=== PATIENT | male | born 1965 ===

== ENCOUNTER → 2019-06-21 14:31 | Outpatient (BNVA) | payer OTHER, SELFPAY | PROVIDERS: Family Provider Family Medicine; PCP Family Medicine; Referring Provider Internal Medicine Cardiovascular Disease; Visit Provider Podiatrist Foot & Ankle Surgery | DX: M79.672 Pain in left foot (principal); M77.32 Calcaneal spur, left foot | CPT/HCPCS: 73630 ==

== ENCOUNTER → 2020-02-16 16:34 | Outpatient (BNVA) | payer OTHER, SELFPAY | PROVIDERS: Family Provider Family Medicine; PCP Family Medicine; Visit Provider Internal Medicine Cardiovascular Disease | DX: I48.91 Unspecified atrial fibrillation (principal) | CPT/HCPCS: 80053; 83735; 84443; 85025 ==

== ENCOUNTER 2020-03-30 14:20 | Outpatient (CLI) | payer OTHER, SELFPAY ==
--- NOTE | 2020-03-30 14:15 | USCV_ITS ---
Trevor Betancourt Age: 54 Gender: M : 1965 Exam Date: 03/30/2020 14:36 Ordering Phys: Evelyn Shin MD ([email or web address]) Technologist: Freda Meraz Exam Location: [facility] [place] Indication: UNSPECIFIED AFIB BP: / HR: 61 Rhythm: Sinus Technical Quality: Good MEASUREMENTS (Male / Female) Normal Values 2D ECHO LV Diastolic Diameter PLAX 5.5 cm 4.2 - 5.9 / 3.9 - 5.3 cm LV Systolic Diameter PLAX 3.9 cm IVS Diastolic Thickness 1.5 cm 0.6 - 1.0 / 0.6 - 0.9 cm IVS Systolic Thickness 1.6 cm LVPW Diastolic Thickness 1.0 cm 0.6 - 1.0 / 0.6 - 0.9 cm LVPW Systolic Thickness 1.4 cm LVOT Diameter 2.2 cm LV Ejection Fraction 2D Teich 53.3 % LV Ejection Fraction MOD 2C 69.9 % LV Ejection Fraction 2C AL 69.4 % LA Diameter 3.6 cm LA Width 3.1 cm LA Height 5.8 cm RA Width 5.4 cm RA Height 5.9 cm Aorta at Sinotubular Diameter 3.0 cm M-MODE LV Diastolic Diameter MM 6.7 cm 4.2 - 5.9 / 3.9 - 5.3 cm LV Systolic Diameter MM 3.5 cm LV Ejection Fraction MM Teich 78.5 % IVS Diastolic Thickness MM 0.6 cm 0.6 - 1.0 / 0.6 - 0.9 cm IVS Systolic Thickness MM 1.9 cm LVPW Diastolic Thickness MM 0.7 cm 0.6 - 1.0 / 0.6 - 0.9 cm LVPW Systolic Thickness MM 2.0 cm Aortic Annulus Diameter 3.3 cm LA Ao Ratio MM 1.3 MV E Point Septal Separation 0.5 cm DOPPLER AV Peak Velocity 180.0 cm/s LVOT Peak Velocity 112.0 cm/s AV Area Cont Eq vti 2.2 cm squared AV Area Cont Eq pk 2.3 cm squared MV Peak Velocity 99.0 cm/s MV Area PHT 3.4 cm squared Mitral E to A Ratio 1.0 MV E' Velocity 42.5 cm/s Mitral E to MV E' Ratio 6.9 Mitral E to LV E' Lateral Ratio 6.3 Mitral E to LV E' Septal Ratio 7.8 TR Peak Velocity 196.3 cm/s TR Peak Gradient 15.4 mmHg Right Atrial Pressure 3.0 mmHg Pulmonary Artery Systolic Pressu 18.4 mmHg PV Peak Velocity 123.0 cm/s RV Acceleration Time 0.1 s RV Ejection Time 0.3 s RV AcT/ET 0.2 FINDINGS Left Ventricle Normal left ventricular size, systolic function and wall thickness, with no regional wall motion abnormalities. Left ventricular ejection fraction is estimated at 65 %. Normal diastolic function. Right Ventricle Normal right ventricular size and systolic function. Right ventricular systolic pressure 18.4 mmHg. Right Atrium Mildly increased right atrial size. Right atrial pressure estimated at 3 mm Hg. Left Atrium Normal left atrial size. Mitral Valve Structurally normal mitral valve. No mitral valve stenosis. Mild mitral valve regurgitation. Aortic Valve Structurally normal trileaflet aortic valve. No aortic valve stenosis. No aortic valve regurgitation. Tricuspid Valve Structurally normal tricuspid valve. No tricuspid valve stenosis. Mild tricuspid valve regurgitation. Pulmonic Valve Pulmonic valve not well visualized. Trace pulmonary valve regurgitation. Pericardium No pericardial effusion. Aorta Normal size aortic root and proximal ascending aorta. CONCLUSIONS 1. Normal left ventricular size, systolic function and wall thickness, with no regional wall motion abnormalities. Left ventricular ejection fraction is estimated at 65 %. Normal diastolic function. 2. Normal right ventricular size and systolic function. 3. Mild mitral and tricuspid valve regurgitation. 4. Normal pulmonary artery pressure. 5. No prior similar studies to compare. Evelyn Shin MD (Electronically Signed) Final Date: 04 April 2020 07:55 S
== END 2020-03-30 14:21 | disposition home or self-care (01) ==
LOC: US 14:22
PROVIDERS: PCP Family Medicine; Visit Provider Internal Medicine Cardiovascular Disease
DX: I48.91 Unspecified atrial fibrillation (principal); I08.1 Rheumatic disorders of both mitral and tricuspid valves
CPT/HCPCS: 93306

== ENCOUNTER 2020-10-09 16:09 | Inpatient (IN) | payer OTHER, SELFPAY ==
--- NOTE | 2020-10-09 16:30 | PC.NURSE ---
Patient arrived to the floor via wheelchair as a direct admit. Patient was provided with a gown, and socks. Patient oriented to room, telemetry machine and call cerda.
--- NOTE | 2020-10-09 16:41 | ECG_ITS ---
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 Measurements Intervals [place] Rate: 102 P: MT: QRS: -20 QRSD: 115 T: 136 QT: 358 QTc: 468 Interpretive Statements ATRIAL FLUTTER/TACHYCARDIA WITH RAPID VENTRICULAR RESPONSE POSSIBLE ANTERIOR MYOCARDIAL INFARCTION [30 ms Q WAVE IN V3/V4, OR R < 0.2 mV IN V4], OF INDETERMINATE AGE MODERATE T-WAVE ABNORMALITY, CONSIDER LATERAL ISCHEMIA [-0.1+ mV T WAVE IN I/aVL/V5/V6] Compared to ECG 04/13/2017 09:05:45 Myocardial infarct finding now present Possible ischemia now present Sinus rhythm no longer present T-wave abnormality still present Electronically Signed On 10-10-2020 17:47:46 CDT by Matilde Sutherland M.D. [id number]
--- NOTE | 2020-10-09 17:12 | PM.HP ---
Providers/Chief Complaint Admitting Physician: Evelyn Shin MD Primary Care Provider: Dave Wells MD Chief Complaint: chest pain History of Present Illness Trevor Betancourt is a 54 year old male with history of hypertension, dyslipidemia and previous history of paroxysmal A. fib x 26 years s/p a. fib ablation x 1 in Feb 2014. He also has sleep apnea and is complaint with CPAP. He went into A. fib few weeks back and continues to complains of fatigue, dizziness and SOB. He took flecainide and that has not helped He had a stress test as per patient several years back. None in our system. He has stayed in atrial flutter/fib for last several weeks. He is on propafenone 225 mg 3 times daily. He was admitted for BRENDON/CV for symptomatic atrial flutter/atrial fibrillation. He has been having dizziness and shortness of breath that has been progressively getting worse. No orthopnea, PND. No lower extremity swelling. at bedside at the time of examination. Review of Systems Const: Denies: fever(s), chills or body aches Eyes: Denies: change in vision or blurry vision ENMT: Denies: throat pain, odynophagia or hoarseness Card: Reports: chest pain (occasional with palpitations), palpitations and dyspnea on exertion; Denies: edema, swelling of feet/ankles, lightheadedness, syncope or pre-syncope Resp: Denies: dyspnea, productive cough, non-productive cough or wheezing GI: Denies: abdominal pain, nausea, vomiting, hematemesis, coffee ground emesis, dysphagia, heartburn, hematochezia or melena : Denies: flank pain, difficulty urinating or urinary urgency Musc: Reports: neck pain and back pain; Denies: muscle cramps Skin/Breast: Denies: rash, pruritus, erythema, photosensitivity or skin pain Neuro: Reports: dizziness (occasional); Denies: headache(s) Psych: Denies: anxiety, depression, mood swings, suicidal ideation or homicidal ideation Endo: Denies: polyuria, polydipsia or excessive sweating Donnie/Lymph: Denies: easy bruising or easy bleeding All/Imm: Denies: urticaria, throat swelling, tongue swelling, facial swelling, acute wheezing, itchy eyes, seasonal rhinorrhea or food intolerance Medications/Allergies Home Medications Medication Instructions Recorded Confirmed Last Taken Type ascorbate calcium (vitamin C) 500 500 mg PO QDAY 05/26/19 10/01/20 Unknown History mg tablet levothyroxine 75 mcg capsule 75 mcg PO QDAY 05/26/19 10/01/20 Unknown History testosterone cypionate 100 mg/mL 100 mg IM .COMPLEX 05/26/19 10/01/20 Unknown History intramuscular oil tramadol 50 mg tablet 25 mg PO Q6H PRN tab 05/26/19 10/01/20 Unknown History metoprolol tartrate 25 mg tablet 25 mg PO BID tab 10/01/20 10/01/20 Unknown History dabigatran etexilate 150 mg capsule 150 mg PO BID #60 cap 10/02/20 10/02/20 Unknown Rx rivaroxaban 20 mg tablet 20 mg PO DAILY #30 tab 10/02/20 Unknown Rx propafenone 225 mg tablet 225 mg PO TID #90 tab 10/03/20 Unknown Rx Allergies Allergy/AdvReac Type Severity Reaction Status Date / Time ibuprofen Allergy Severe Unknown Verified 10/01/20 09:05 PFSH Acute PFSH: Medical History (Updated 10/09/20 @ 18:21 by Evelyn Shin MD) Atrial fibrillation Dyslipidemia History of coronary angiogram HTN (hypertension) TRACY (obstructive sleep apnea) Surgical History H/O cardiac radiofrequency ablation S/P hernia repair Family History Grandmother CAD (coronary artery disease) MATERNAL Diabetes Mother Parkinson disease Grandfather CAD (coronary artery disease) MATERNAL S/P CABG (coronary artery bypass graft) Social History Smoking and tobacco status: never smoked Alcohol intake: current Alcohol intake frequency: few times a month Household members: spouse Marital status: service: No Current occupational status: employed Current gender identity: Male Jacki/Yarsanism: Sabianism Physical Exam Narrative: EXAM NARRATIVE: GEN: sitting in bed, NAD HEENT/Neck: NO JVD, PEERL, No pallor or icterur RS: CTAB/L, No wheezes or rales CVS: S1, S2 regular tachycardia+ PA: soft, NT, ND, BS+ normoactive COLOR MAKER: AAOx 3, No FND Ext: No edema, cyanosis or clubbing Data : 10/09/20 17:22 10/09/20 17:22 A&P Assessment and plan (1) Dyspnea on exertion: Likely in setting of symptomatic A. fib/flutter -However, would benefit from risk startification. -Plan for stress test in morning. Status: Acute (2) Atrial flutter, paroxysmal: A. fib/A. flutter -On propafenone to 225 mg 3 times daily and Continue metoprolol tartrate 25 mg twice a day. -continue xarelto. -May have to try sotalol/Tikosyn if fails cardioversion. -He would like to be referred to [place] for another ablation procedure. Status: Acute (3) Atrial fibrillation: Status: Acute Qualifiers: Atrial fibrillation type: unspecified chronic Qualified Code(s): I48.20 - Chronic atrial fibrillation, unspecified (4) HTN (hypertension): Status: Acute Qualifiers: Hypertension type: essential hypertension Qualified Code(s): I10 - Essential (primary) hypertension (5) TRACY (obstructive sleep apnea): Status: Acute (6) Dyslipidemia: Status: Acute Additional A&P Information DVT prophylaxis: On full dose anticoagulation Attestations Medical Necessity Statement*: He would likely need more than 2 midnight stay for management of symptomatic atrial flutter/fib Time Spent in Patient Care: Greater than 35 minutes (>than 50% of time spent in counselling and/or direct pt care on unit). 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
[2020-10-09 17:28] VITALS: BMI 32.5
[2020-10-09 17:39] LABS: Basophils # 0.1 10^3/uL (0.0-0.1); Basophils % 0.9 %; Eosinophils # 0.4 10^3/uL (0.0-0.8); Eosinophils % 5.8 %; Hematocrit 42.9 % (42.0-52.0); Hemoglobin 14.2 g/dL (11.7-16.6); Lymphocytes # 1.7 10^3/uL (0.8-4.8); Mean Corpuscular HGB Conc 33.1 g/dL (30.0-36.0); Mean Corpuscular Hemoglobin 29.8 pg (28.0-34.0); Mean Corpuscular Volume 90.1 fL (80-94); Mean Platelet Volume 9.2 fL (7.4-10.4); Monocytes # 0.6 10^3/uL (0.2-0.9); Monocytes % 8.1 %; Neutrophils # 4.75 10^3/uL (1.8-7.7); Neutrophils % 62.8 %; Nucleated Red Blood Cells % 0 %; Platelet Count 199 10^3/cmm (130-400); Red Blood Count 4.76 10^6/uL (4.1-5.3); Red Cell Distribution Width 12.2 % (12.1-15.1); White Blood Count 7.6 10^3/uL (4.0-10.0)
--- NOTE | 2020-10-09 18:11 | ECG_ITS ---
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 Interpretive Statements NAME OF STUDY: LEXISCAN SESTAMIBI STRESS TEST INDICATION: Atrial fibrillation, propafenone therapy PROCEDURE: At the baseline, the blood pressure was 121/100 mmHg with a heart rate of 106 bpm. The electrocardiogram showed atrial flutter with rapid ventricle response. Normal axis. Possible old anteroseptal infarct. Nonspecific ST-T wave changes. The Lexiscan was infused over a period of 20 seconds. A total of 0.4 milligrams of Lexiscan was infused. The stress phase was continued for a total of 5 minutes. Heart rate at the end of the stress phase was 109 bpm with a blood pressure of 106/84 mmHg. The EKG at the peak infusion revealed no significant ST-T wave changes. Sestamibi was injected 20 seconds after the Lexiscan infusion. Blood pressure at the end of the recovery phase was 106/81 mmHg with a heart rate of 109 beats per minute. CONCLUSION: 1. No significant EKG changes with the LexiScan infusion 2. No LexiScan induced chest pain or cardiac arrhythmia. 3. Normal blood pressure and heart rate response. 4. Sestamibi/sestamibi perfusion scan pending; see separate report. Electronically Signed On 10-10-2020 17:27:46 CDT by Evelyn Shin M.D. [id number]
[2020-10-09 18:18] LABS: Alanine Aminotransferase 34 U/L (0-41); Albumin Level 4.4 g/dL (3.5-5.2); Alkaline Phosphatase 77 IU/L (40-130); Anion Gap 16.1 (5-19); Aspartate Amino Transferase 16 U/L (0-40); Blood Urea Nitrogen 23 mg/dL (6-20); Calcium 8.7 mg/dL (8.5-10.5); Carbon Dioxide 22 mmol/L (22-29); Chloride 105 mmol/L (98-107); Globulin 2.2 g/dL (1.3-4.6); Glomerular Filtration Rate 77.3 mL/min (90-130); Glucose 84 mg/dL (65-115); NT Pro B Type Natriuretic Pept 345 pg/mL (0-125); Osmolality Calculated 291 mOsm/kg (285-295); Potassium 4.1 mmol/L (3.5-5.1); Sodium 139 mmol/L (136-145); Thyroid Stimulating Hormone 4.66 uIU/mL (0.27-4.20); Total Bilirubin 0.2 mg/dL (0.15-1.2); Total Protein 6.6 g/dL (6.6-8.7)
[2020-10-09 20:00] VITALS: BP 113/81; PULSE 111; RESP 20; TEMP 36.7; O2SAT 96
[2020-10-09 20:43] LABS: SARS Covid-2 Antigen Negative (Negative)
[2020-10-09] MEDS: propafenone 150 mg Tablet 225 MG PO (21:18)
[2020-10-09] MEDS: metoprolol tartrate 25 mg Tablet PO (21:18)
[2020-10-09 21:22] VITALS: PULSE 76; RESP 18; O2SAT 97
[2020-10-09 22:00] VITALS: PULSE 99
[2020-10-09 23:53] VITALS: BP 111/85; PULSE 94; RESP 20; TEMP 36.6; O2SAT 97
[2020-10-10] VITALS (13 sets, daily range): BP systolic 101–126; BP diastolic 70–97; PULSE 76–108; RESP 10–26; TEMP 36.6–37.2; O2SAT 95–99
[2020-10-10] MEDS: levothyroxine 150 mcg Tablet 75 MCG PO (05:24)
[2020-10-10 05:25] LABS: Basophils # 0.1 10^3/uL (0.0-0.1); Basophils % 0.9 %; Eosinophils # 0.5 10^3/uL (0.0-0.8); Eosinophils % 6.6 %; Hematocrit 43.4 % (42.0-52.0); Hemoglobin 14.2 g/dL (11.7-16.6); Lymphocytes # 1.9 10^3/uL (0.8-4.8); Lymphocytes % 25.4 %; Mean Corpuscular HGB Conc 32.7 g/dL (30.0-36.0); Mean Corpuscular Hemoglobin 29.6 pg (28.0-34.0); Mean Corpuscular Volume 90.4 fL (80-94); Mean Platelet Volume 9.5 fL (7.4-10.4); Monocytes # 0.6 10^3/uL (0.2-0.9); Monocytes % 7.8 %; Neutrophils # 4.44 10^3/uL (1.8-7.7); Neutrophils % 58.9 %; Nucleated Red Blood Cells % 0 %; Platelet Count 191 10^3/cmm (130-400); Red Cell Distribution Width 12.2 % (12.1-15.1); White Blood Count 7.6 10^3/uL (4.0-10.0)
[2020-10-10 05:46] LABS: Alanine Aminotransferase 37 U/L (0-41); Albumin Level 3.8 g/dL (3.5-5.2); Alkaline Phosphatase 67 IU/L (40-130); Anion Gap 12.9 (5-19); Aspartate Amino Transferase 20 U/L (0-40); Blood Urea Nitrogen 18 mg/dL (6-20); Calcium 8.9 mg/dL (8.5-10.5); Carbon Dioxide 24 mmol/L (22-29); Chloride 104 mmol/L (98-107); Chol HDL Ratio 4.65 mg/dL (1.0-5.00); Cholesterol 172 mg/dL (0-200); Globulin 2.3 g/dL (1.3-4.6); Glomerular Filtration Rate 87.3 mL/min (90-130); Glucose 103 mg/dL (65-115); HDL Cholesterol 37 mg/dL (60-100); LDL Cholesterol Calculated 120 mg/dL (50-129); LDL HDL Ratio 3.24 RATIO (0.00-3.22); Osmolality Calculated 286 mOsm/kg (285-295); Potassium 3.9 mmol/L (3.5-5.1); Sodium 137 mmol/L (136-145); Total Bilirubin 0.4 mg/dL (0.15-1.2); Total Protein 6.1 g/dL (6.6-8.7); Triglycerides 74 mg/dL (0-150)
--- NOTE | 2020-10-10 07:00 | ECG_ITS ---
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 Measurements Intervals [place] Rate: 88 P: FL: QRS: -23 QRSD: 115 T: 128 QT: 397 QTc: 483 Interpretive Statements ATRIAL FLUTTER/TACHYCARDIA BORDERLINE LEFT AXIS DEVIATION [QRS AXIS < -20] MODERATE INTRAVENTRICULAR CONDUCTION DELAY [110+ ms QRS DURATION] MODERATE T-WAVE ABNORMALITY, CONSIDER LATERAL ISCHEMIA [-0.1+ mV T WAVE IN I/aVL/V5/V6] Compared to ECG 10/09/2020 17:31:14 Intraventricular conduction delay now present Myocardial infarct finding no longer present T-wave abnormality still present Possible ischemia still present Electronically Signed On 10-10-2020 17:50:25 CDT by Matilde Sutherland M.D. [id number]
[2020-10-10] MEDS: regadenoson 0.4 Mg/5 ml Syringe IVP (07:43)
--- NOTE | 2020-10-10 07:43 | PC.NURSE ---
Patient voiding in toilet, not saving urine, per patient. Patient stated he voided 3 times throughout the night.
[2020-10-10 08:31] LABS: Free T4 Free Thyroxine 1.13 ng/dL (0.82-1.77); T3 Free 2.3 PG/ML (2.0-4.4)
[2020-10-10] MEDS: metoprolol tartrate 25 mg Tablet PO ×2 (09:29→20:50)
[2020-10-10] MEDS: propafenone 150 mg Tablet 225 MG PO ×3 (09:29→20:50)
[2020-10-10] MEDS: rivaroxaban 10 mg Tablet 20 MG PO (09:30)
--- NOTE | 2020-10-10 09:57 | PC.CHAP ---
Pastoral Care Encounter/Spiritual Assessment Type of Contact [] Declined supportability engineer visit [] Patient/Family/Request visit [] Outpatient visit [] Follow-up visit [] Physician referral [] Code/Alert [x] Routine visit [] Staff referral [] Actively dying [] Patient sleeping [] Family support [] [] Out of room [] Palliative care [] [] Receiving care in room [] Pre-surgical visit [] Trauma [] Long length of stay [] ICU visit [x] Other: quarantine Relational/Emotional Strength [] Patient feels connected with others/family/visitors/staff [] Distress [] Loneliness/isolation [] Abandonment Spirituality of Patient [] Person of Jacki [] Attends Cheondoism of their Jacki [] Believes in Prayer [] Reads Bible or Baptism materials [] There are Spiritual issues to be addressed Interpreter Deaf Interventions [x] Prayer [] Active listening [] Non-anxious presence [] Spiritual/emotional support [] Crisis/trauma care [] Spiritual counseling [] Bereavement support [] Provided bereavement packet [] Provided Bible/devotional materials [] Provided toy/stuffed animal, coloring book to patient or family member [] Provided Communion [] Anointing/[place] [] Salvation [x] Completed spiritual assessment [] Other: Impact on Illness or Injury [] Angry [] Fearful [] Anxious [] Often cries [] Exhaustion [] Unable to work [] Unable to attend mandaeism [] Unable to walk/stand [] Unable to read [] Unable to drive [] Unable to eat/drink [] Unable to sleep [] Unable to be with family [] Patient intubated [] Other: Summary Time spent with patient
--- NOTE | 2020-10-10 10:17 | PC.NURSE ---
spoke with Dr welch about patients NPO status for stress test and plans to do cardio version at some point this stay telephone instructions received to continue history diet order
--- NOTE | 2020-10-10 12:35 | PC.PHAR ---
pt states he takes care of his own medications-pt states he never got the symbicort inhaler filled on 10/03/20 pt states the copay was to expensive-pt states he is taking xarelto 20mg daily-ext med history shows pradaxa 150mg bid filled on 10/02/20 30d/s pt states he is not taking that-pt states he hasnt taken his testost cyp 200mg/ml injection for 3-4 weeks
[2020-10-10 15:13] LABS: Coronavirus Test Green County Not Detected
--- NOTE | 2020-10-10 18:11 | NMCV_ITS ---
NM barbara perf SPECT r/s* [id number] Trevor Betancourt Age: 54 Gender: M : 1965 Exam Date: 10/10/2020 07:00 Ordering Phys: Evelyn Shin MD ([email or web address]) Technologist: CHINYERE Godfrey Exam Location: [facility] Indications: CHEST PAIN STRESS TEST Please see separate stress test report in [facility] for full findings IMAGE PROTOCOL Rest/Stress 1 Lexiscan Day Radiopharmaceutical Dose (mCi) Administration Site Administered by Rest: Tc-99m 10.9 IV CHINYERE Veras Sestamibi Stress:Tc-99m 32.3 IV CHINYERE Veras Sestamibi Rest: 10-Oct-2020 60 Discovery 630 Stress: 10-Oct-2020 30 Discovery 630 0.4mg Lexiscan. Images obtained in supine and prone position. SPECT RESULTS Technical Quality: Excellent Raw Data Analysis: Normal Image Corrections: No attenuation or motion correction applied Summed Stress Score: 0 Summed Rest Score: 2 Summed Difference Score: 0 PERFUSION FINDINGS Small size perfusion abnormality of mild severity of apical lateral wall and resting supine stress images with improved tracer uptake on prone stress images. This is suggestive of attenuation artifact. FUNCTIONAL RESULTS (calculated via Gated SPECT) Stress Image LV EF (%): 39 Stress EDV (mL):141 TID: 0.99 Stress ESV (mL):86 FUNCTIONAL FINDINGS: The left ventricle is normal in size. Transient Ischemia Dilatation of 0.99. There is moderately reduced left ventricular global systolic function. The left ventricular ejection fraction is reduced with a value of 39%. There is global hypokinesis. Increased end-diastolic and end-systolic volumes. IMPRESSIONS 1. Myocardial perfusion imaging is normal. Attenuation artifact and apical lateral wall. 2. The left ventricular ejection fraction is reduced with a value of 39%. 3. There is global hypokinesis. 4. No coronary ischemia based on the study. 5. No prior similar studies to compare. Evelyn Shin MD (Electronically Signed) Final Date: 10 October 2020 15:04 S
--- NOTE | 2020-10-10 19:56 | P.PN_ITS ---
Subjective Subjective: Interval history: He underwent stress test this morning. Medications: Reviewed: Yes Vitals/I&O/Wt Last Vital Signs Temp 97.9 F 10/10/20 15:00 Pulse 100 10/10/20 19:06 Resp 13 10/10/20 19:06 BP 108/83 10/10/20 19:06 Pulse Ox 95 10/10/20 15:00 10/10/20 10/10/20 10/10/20 06:59 14:59 22:59 Intake Total 120 / 120 360 / 480 Output Total 350 / 350 Balance -230 / -230 360 / 130 Weight last 48 hrs Weight 226 lb Weight 226 lb 8 oz Physical Exam Narrative: EXAM NARRATIVE: GEN: sitting in bed, NAD HEENT/Neck: NO JVD, PEERL, No pallor or icterur RS: CTAB/L, No wheezes or rales CVS: S1, S2 regular tachycardia+ PA: soft, NT, ND, BS+ normoactive CORN PICKER: AAOx 3, No FND Ext: No edema, cyanosis or clubbing Data : 10/10/20 04:20 10/10/20 04:20 A&P Assessment and plan (1) Dyspnea on exertion: Likely in setting of symptomatic A. fib/flutter -No ischemia on stress test this morning. Status: Acute (2) Atrial flutter, paroxysmal: A. fib/A. flutter -On propafenone to 225 mg 3 times daily and Continue metoprolol tartrate 25 mg twice a day. -continue xarelto. -May have to try sotalol/Tikosyn if fails cardioversion/ LVEF decreased on BRENDON. -Plan for BRENDON and CV tomorrow morning. -He would like to be referred to [place] for another ablation procedure. Status: Acute (3) Atrial fibrillation: h/o A. fib Status: Acute Qualifiers: Atrial fibrillation type: unspecified chronic Qualified Code(s): I48.20 - Chronic atrial fibrillation, unspecified (4) HTN (hypertension): Status: Acute Qualifiers: Hypertension type: essential hypertension Qualified Code(s): I10 - Esse ntial (primary) hypertension (5) TRACY (obstructive sleep apnea): Status: Acute (6) Dyslipidemia: Status: Acute Additional A&P Information DVT prophylaxis: On full dose anticoagulation Attestations Medical Necessity Statement*: Requires hospital stay for management of symptomatic atrial flutter/fib Time Spent in Patient Care: 16 - 35 minutes (>than 50% of time spent in counselling and/or direct pt care on unit) . Coding Level of Care Code Acute Size Mixer for [facility] Fwd Diagnoses Dyspnea on exertion R06.00 Atrial flutter, paroxysmal I48.92 Atrial fibrillation I48.20 Atrial fibrillation type: unspecified chronic HTN (hypertension) I10 Hypertension type: essential hypertension TRACY (obstructive sleep apnea) G47.33 Dyslipidemia E78.5
[2020-10-11] VITALS (31 sets, daily range): BP systolic 61–135; BP diastolic 46–99; PULSE 56–104; RESP 15–24; TEMP 36.6–36.8; O2SAT 94–100
[2020-10-11 05:22] LABS: Basophils # 0.1 10^3/uL (0.0-0.1); Basophils % 0.8 %; Eosinophils # 0.5 10^3/uL (0.0-0.8); Eosinophils % 6.4 %; Hematocrit 45.3 % (42.0-52.0); Hemoglobin 15.2 g/dL (11.7-16.6); Lymphocytes # 1.9 10^3/uL (0.8-4.8); Lymphocytes % 24.2 %; Mean Corpuscular HGB Conc 33.6 g/dL (30.0-36.0); Mean Corpuscular Hemoglobin 29.8 pg (28.0-34.0); Mean Corpuscular Volume 88.8 fL (80-94); Mean Platelet Volume 9.5 fL (7.4-10.4); Monocytes # 0.7 10^3/uL (0.2-0.9); Monocytes % 9.5 %; Neutrophils % 58.8 %; Nucleated Red Blood Cells % 0 %; Platelet Count 197 10^3/cmm (130-400); Red Cell Distribution Width 11.9 % (12.1-15.1); White Blood Count 7.8 10^3/uL (4.0-10.0)
[2020-10-11] MEDS: levothyroxine 150 mcg Tablet 75 MCG PO (05:33)
[2020-10-11 05:39] LABS: Alanine Aminotransferase 45 U/L (0-41); Albumin Level 4.1 g/dL (3.5-5.2); Alkaline Phosphatase 77 IU/L (40-130); Aspartate Amino Transferase 21 U/L (0-40); Blood Urea Nitrogen 16 mg/dL (6-20); Calcium 9.3 mg/dL (8.5-10.5); Carbon Dioxide 26 mmol/L (22-29); Chloride 100 mmol/L (98-107); Globulin 2.6 g/dL (1.3-4.6); Glomerular Filtration Rate 69.2 mL/min (90-130); Glucose 87 mg/dL (65-115); Osmolality Calculated 281 mOsm/kg (285-295); Sodium 135 mmol/L (136-145); Total Bilirubin 0.3 mg/dL (0.15-1.2); Total Protein 6.7 g/dL (6.6-8.7)
--- NOTE | 2020-10-11 07:04 | PC.NURSE ---
Patient voiding in toilet, not saving urine, per patient. Patient stated he voided 3 times throughout the night.
--- NOTE | 2020-10-11 07:31 | XR_ITS ---
WS: [id number] Exam: XR chest 1V portable [id number] Date/Time of Exam: 10/11/2020 7:42 AM Reason For Exam: SOB No priors. The lungs are fully inflated and clear. Normal cardiomediastinal structures for technique. No pleural effusions. Monitoring leads superimpose the chest. Regional bony elements are unremarkable. XR/XR chest 1V portable [id number] IMPRESSION: 1. No acute cardiopulmonary finding.
[2020-10-11] MEDS: propafenone 150 mg Tablet 225 MG PO (08:32)
[2020-10-11] MEDS: FUROsemide 20 mg Tablet PO (08:32)
[2020-10-11] MEDS: rivaroxaban 10 mg Tablet 20 MG PO (08:33)
[2020-10-11] MEDS: metoprolol tartrate 25 mg Tablet PO (08:33)
--- NOTE | 2020-10-11 08:53 | ANES.PREANE2 ---
Pre-Anesthetic Assessment Pre-Anesthetic Assessment: Height/Weight: Height 1.78 m Weight 101.151 kg Temp Pulse Resp BP Pulse Ox 98.3 F 75 17 135/78 98 10/11/20 07:16 10/11/20 07:16 10/11/20 07:16 10/11/20 07:16 10/11/20 07:16 Preop Diagnosis: syncope related to atrial fibrillation Proposed Procedure: Operation Date: 10/11/20 09:00 Proposed Procedures p BRENDON(Not Applicable) - Evelyn Shin MD Was Beta Butch taken within 24 hours: Yes Was Clonidine taken within 24 hours: N/A Last intake: 10/10/202229 Social: Social History: Alcohol and No tobacco Exam: Pre-Anes Outpt Exam: alert, oriented x 3 and clear to auscultation bilaterally Airway: Submandibular: WNL Cervical ROM: WNL MP: 1 Dentition: Caps History/ROS: No significant history except as noted Pulmonary: Pulmonary: Sleep apnea CV/HEM: CV/HEM: Afib, Arrythmia and HTN Comments: recent stress test - see results echo 1 year prior- see results : : None reported Hepatic: Hepatic: None reported GI: GI: None reported Metabolic: Metabolic: Thyroid and None reported Musc/skel: Musc/skel: None reported Neuropsych: Neuropsych: Seizure ( childhood epilepsy patient states no issues since childhood no current medications for seizure prophylaxis) Anesthetic Plan: ASA status: 3 Anesthesia: Anesthesia Evaluation and MAC Risk of > 500 ml blood loss (7ml/kg in children): No Meds/Allergies Current Medications: Current Medications Generic Name Dose Route Start Last Admin Trade Name Teena PRN Reason Stop Dose Admin Levothyroxine Sodi um 75 mcg 10/10/20 06:00 10/11/20 05:33 Levothyroxine 15 0 Mcg Tablet PO 75 mcg QAM GENOVEVA Administration Metoprolol Tartrat e 25 mg 10/09/20 21:00 10/11/20 08:33 Metoprolol Tartr ate 25 Mg Tablet PO 25 mg BID@0900,2100 GENOVEVA Administration Propafenone HCl 225 mg 10/09/20 21:00 10/11/20 08:32 Propafenone 150 Mg Tablet PO 225 mg TID GENOVEVA Administration Rivaroxaban 20 mg 10/10/20 09:00 10/11/20 08:33 Rivaroxaban 10 M g Tablet PO 20 mg DAILY GENOVEVA Administration PFSH Anesthesia PFSH: Medical History (Updated 10/09/20 @ 18:21 by Evelyn Shin MD) Atrial fibrillation Dyslipidemia History of coronary angiogram HTN (hypertension) TRACY (obstructive sleep apnea) Surgical History H/O cardiac radiofrequency ablation S/P hernia repair Family History Grandmother CAD (coronary artery disease) MATERNAL Diabetes Mother Parkinson disease Grandfather CAD (coronary artery disease) MATERNAL S/P CABG (coronary artery bypass graft) Social History Smoking and tobacco status: never smoked Alcohol intake: current Alcohol intake frequency: few times a month Household members: spouse Marital status: service: No Current occupational status: employed Current gender identity: Male Jacki/Protestant: Taoist Data Anesthesia CBC & Chem 7: 10/11/20 04:15 10/11/20 04:15 Other Labs: Laboratory Results - last 48 hr 10/09/20 10/09/20 10/09/20 17:22 17:22 18:34 WBC 7.6 RBC 4.76 Hgb 14.2 Hct 42.9 MCV 90.1 MCH 29.8 MCHC 33.1 RDW 12.2 Plt Count 199 MPV 9.2 Neut % (Auto) 62.8 Lymph % (Auto) 22.0 [place] % (Auto) 8.1 Eos % (Auto) 5.8 Baso % (Auto) 0.9 Neut # (Auto) 4.75 Lymph # (Auto) 1.7 [place] # (Auto) 0.6 Eos # (Auto) 0.4 Baso # (Auto) 0.1 Nucleated RBC % (auto) 0 Nucleated RBCs # 0.0 Sodium 139 Potassium 4.1 Chloride 105 Carbon Dioxide 22 Anion Gap 16.1 BUN 23 H Creatinine 1.0 GFR Calculation 77.3 L Glucose 84 Calculated Osmolality 291 Calcium 8.7 Magnesium 2.0 Total Bilirubin 0.2 AST 16 ALT 34 Alkaline Phosphatase 77 NT-Pro-B Natriuret Pep 345 H Total Protein 6.6 Albumin 4.4 Globulin 2.2 Triglycerides Cholesterol LDL Cholesterol, Calc HDL Cholesterol LDL/HDL Ratio Cholesterol/HDL Ratio TSH 4.66 H Free T4 Free T3 Nasal/Oral COVID-19 PCR Not detected SARS-CoV-2 Ag (Rapid) 10/09/20 10/10/20 10/10/20 18:57 04:20 04:20 WBC 7.6 RBC 4.80 Hgb 14.2 Hct 43.4 MCV 90.4 MCH 29.6 MCHC 32.7 RDW 12.2 Plt Count 191 MPV 9.5 Neut % (Auto) 58.9 Lymph % (Auto) 25.4 [place] % (Auto) 7.8 Eos % (Auto) 6.6 Baso % (Auto) 0.9 Neut # (Auto) 4.44 Lymph # (Auto) 1.9 [place] # (Auto) 0.6 Eos # (Auto) 0.5 Baso # (Auto) 0.1 Nucleated RBC % (auto) 0 Nucleated RBCs # 0.0 Sodium 137 Potassium 3.9 Chloride 104 Carbon Dioxide 24 Anion Gap 12.9 BUN 18 Creatinine 0.9 GFR Calculation 87.3 L Glucose 103 Calculated Osmolality 286 Calcium 8.9 Magnesium 2.0 Total Bilirubin 0.4 AST 20 ALT 37 Alkaline Phosphatase 67 NT-Pro-B Natriuret Pep Total Protein 6.1 L Albumin 3.8 Globulin 2.3 Triglycerides 74 Cholesterol 172 LDL Cholesterol, Calc 120 HDL Cholesterol 37 L LDL/HDL Ratio 3.24 H Cholesterol/HDL Ratio 4.65 TSH Free T4 Free T3 Nasal/Oral COVID-19 PCR SARS-CoV-2 Ag (Rapid) Negative 10/10/20 10/11/20 10/11/20 04:20 04:15 04:15 WBC 7.8 RBC 5.10 Hgb 15.2 Hct 45.3 MCV 88.8 MCH 29.8 MCHC 33.6 RDW 11.9 L Plt Count 197 MPV 9.5 Neut % (Auto) 58.8 Lymph % (Auto) 24.2 [place] % (Auto) 9.5 Eos % (Auto) 6.4 Baso % (Auto) 0.8 Neut # (Auto) 4.60 Lymph # (Auto) 1.9 [place] # (Auto) 0.7 Eos # (Auto) 0.5 Baso # (Auto) 0.1 Nucleated RBC % (auto) 0 Nucleated RBCs # 0.0 Sodium 135 L Potassium 4.0 Chloride 100 Carbon Dioxide 26 Anion Gap 13.0 BUN 16 Creatinine 1.1 GFR Calculation 69.2 L Glucose 87 Calculated Osmolality 281 L Calcium 9.3 Magnesium 2.0 Total Bilirubin 0.3 AST 21 ALT 45 H Alkaline Phosphatase 77 NT-Pro-B Natriuret Pep Total Protein 6.7 Albumin 4.1 Globulin 2.6 Triglycerides Cholesterol LDL Cholesterol, Calc HDL Cholesterol LDL/HDL Ratio Cholesterol/HDL Ratio TSH Free T4 1.13 Free T3 2.3 Nasal/Oral COVID-19 PCR SARS-CoV-2 Ag (Rapid) Cardiac Studies: No Data to Display
--- NOTE | 2020-10-11 09:00 | USCV_ITS ---
Trevor Betancourt Age: 54 Gender: M : 1965 Exam Date: 10/11/2020 09:04 Ordering Phys: Evelyn Shin MD ([email or web address]) Technologist: Vicky Dodge Exam Location[place] [facility] [place]ication: A FIB BP: 105 / 81 HR: 99 Rhythm: Atrial fibrillation Technical Quality: Adequate MEASUREMENTS (Male / Female) Normal Values Medications Patient given IV sedation by anesthesia service, for details please refer to the anesthesia report. Complications Intubation easy. Attempts x 1. No blood on probe post procedure. Patient tolerated procedure well. Proc. Components The patient was brought to the BRENDON examination room in a fasting state after obtaining an informed consent. The BRENDON probe was passed into the posterior pharynx , mid-esophagus, distal esophagus, and gastric fundus. The patient tolerated the procedure well and there were no complications. FINDINGS Left Ventricle Normal left ventricular cavity size. Moderately decreased left ventricular systolic function. Left ventricular ejection fraction is estimated at 35%. Moderate global hypokinesis. Right Ventricle Normal right ventricular size and systolic function. Normal right ventricular systolic pressure. Right Atrium Normal right atrial size. Left Atrium Normal left atrial size. LA Appendage Normal left atrial appendage. No thrombus visualized in the left atrial appendage. IA Septum Normal interatrial septum. Tiny patent foramen ovale by agitated saline (bubble study). 5-10 bubbles noted in left atrium. Mitral Valve Structurally normal mitral valve. No mitral valve stenosis. Trace mitral valve regurgitation. Aortic Valve Structurally normal trileaflet aortic valve. No aortic valve stenosis. Trace aortic valve regurgitation. Tricuspid Valve Structurally normal tricuspid valve. No tricuspid valve stenosis. Mild tricuspid valve regurgitation. Pulmonic Valve Structurally normal pulmonic valve. No significant pulmonary valve regurgitation. Pericardium No pericardial effusion. Normal-sized inferior vena cava. Aorta Normal size aortic root and proximal ascending aorta. No aortic dilation aneurysm or dissection. CONCLUSIONS 1. Normal left ventricular cavity size. Moderately decreased left ventricular systolic function. Left ventricular ejection fraction is estimated at 35%. Moderate global hypokinesis. 2. Normal right ventricular size and systolic function. 3. Normal pulmonary artery pressure. 4. No left atrial or left atrial appendage thrombus. 5. Mild tricuspid valve regurgitation. Evelyn Shin MD (Electronically Signed) Final Date: 12 October 2020 14:05 S
[2020-10-11] MEDS: sodium chloride 0.9% 1,000 ML 30 ML IV (09:10)
--- NOTE | 2020-10-11 09:53 | ECG_ITS ---
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 Measurements Intervals [place] Rate: 65 P: 66 SD: 223 QRS: -9 QRSD: 113 T: 27 QT: 425 QTc: 443 Interpretive Statements SINUS RHYTHM WITH FIRST DEGREE AV BLOCK MODERATE INTRAVENTRICULAR CONDUCTION DELAY [110+ ms QRS DURATION] NONSPECIFIC T-WAVE ABNORMALITY Compared to ECG 10/10/2020 09:29:36 First degree AV block now present Atrial flutter no longer present Possible ischemia no longer present T-wave abnormality still present Electronically Signed On 10-11-2020 18:30:15 CDT by Leonardo Montanez M.D. [id number]
--- NOTE | 2020-10-11 10:40 | PC.NURSE ---
BRENDON Dr Shin at bedside for BRENDON and cardio version TIME out performed 927 all members agree procedure start time 930 shock time 150j 46 procedure end 946 Fluids titrated per anesthesia 500 ml given during procedure verbal orders given by Dr Shin to obtain EKG for rhythm verification
--- NOTE | 2020-10-11 12:00 | P.PN_ITS ---
Subjective Subjective: Interval history: Patient was seen both before and after BRENDON cardioversion. Patient remains in sinus rhythm. Medications: Reviewed: Yes Medication Review Details: Current Medications Acetaminophen (Acetaminophen 325 Mg Tablet) 650 mg PO Q4H PRN PRN Reason: MILD PAIN Sodium Chloride (Sodium Chloride 0.9%) 1,000 mls @ 30 mls/hr IV .Q24H ONE Stop: 10/12/20 09:01 Last Infusion: 10/11/20 10:40 Dose: Infused Documented by: Levothyroxine Sodium (Levothyroxine 150 Mcg Tablet) 75 mcg PO QAM COUNTS INCLUDE 234 BEDS AT THE [facility] Last Admin: 10/11/20 05:33 Dose: 75 mcg Documented by: Magnesium Hydroxide (Magnesium Hydroxide 30 Ml Udc) 30 ml PO DAILY PRN PRN Reason: CONSTIPATION Metoprolol Tartrate (Metoprolol Tartrate 25 Mg Tablet) 25 mg PO BID@0900,2100 COUNTS INCLUDE 234 BEDS AT THE [facility] Last Admin: 10/11/20 08:33 Dose: 25 mg Documented by: Ondansetron HCl (Ondansetron 2 Mg/Ml Sdv 2 Ml) 4 mg IVP Q6H PRN PRN Reason: NAUSEA AND VOMITING Ondansetron HCl (Ondansetron 2 Mg/Ml Sdv 2 Ml) 4 mg IVP Q2M PRN PRN Reason: NAUSEA Propafenone HCl (Propafenone 150 Mg Tablet) 225 mg PO TID COUNTS INCLUDE 234 BEDS AT THE [facility] Last Admin: 10/11/20 08:32 Dose: 225 mg Documented by: Rivaroxaban (Rivaroxaban 10 Mg Tablet) 20 mg PO DAILY COUNTS INCLUDE 234 BEDS AT THE [facility] Last Admin: 10/11/20 08:33 Dose: 20 mg Documented by: Temazepam (Temazepam 15 Mg Capsule) 15 mg PO BEDTIME PRN PRN Reason: INSOMNIA Tramadol HCl (Tramadol 50 Mg Tablet) 25 mg PO Q6H PRN PRN Reason: MODERATE PAIN Vitals/I&O/Wt Last Vital Signs Temp 98.3 F 10/11/20 07:16 Pulse 75 10/11/20 07:16 Resp 17 10/11/20 07:16 BP 135/78 10/11/20 07:16 Pulse Ox 98 10/11/20 07:16 10/10/20 10/11/20 10/11/20 22:59 06:59 14:59 Intake Total 560 / 680 498.5 / 498.5 Output Total 2 / 352 Balance 558 / 328 498.5 / 498.5 Weight last 48 hrs Weight 223 lb Weight 226 lb Weight 226 lb 8 oz Physical Exam Narrative: EXAM NARRATIVE: GEN: sitting in bed, NAD HEENT/Neck: NO JVD, PEERL, No pallor or icterur RS: CTAB/L, No wheezes or rales CVS: S1, S2 regular PA: soft, NT, ND, BS+ normoactive 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 flutter -No ischemia on stress test this morning. Status: Acute (2) Atrial flutter, paroxysmal: A. fib/A. flutter -Patient underwent BRENDON guided cardioversion this morning with hoahaoism of sinus rhythm. Moderately decreased left ventricular systolic function. -I will stop metoprolol and propafenone and start him on sotalol 80 mg twice daily. -He will need EKG and telemetry monitoring for sotalol therapy. -Continue Xarelto. -I will refer him to [facility] as an outpatient for another ablation procedure. Status: Acute (3) Atrial fibrillation: h/o A. fib s/p ablation x1. Status: Acute Qualifiers: Atrial fibrillation type: unspecified chronic Qualified Code(s): I48.20 - Chronic atrial fibrillation, unspecified (4) HTN (hypertension): Status: Acute Qualifiers: Hypertension type: essential hypertension Qualified Code(s): I10 - Essential (primary) hypertension (5) TRACY (obstructive sleep apnea): Status: Acute (6) Dyslipidemia: Status: Acute Additional A&P Information Tachycardia induced cardiomyopathy Tiny PFO DVT prophylaxis: On full dose anticoagulation Attestations Medical Necessity Statement*: Requires hospital stay for management of symptomatic atrial flutter/fib Time Spent in Patient Care: Greater than 35 minutes (>than 50% of time spent in counselling and/or direct pt care on unit) . Critical Care Time: The high probability of a clinically significant, sudden or life threatening deterioration of the patient's [] system(s) required my full and direct attention, intervention and personal management. The critical care time is as shown. This time is in addition to time spent performing any reported procedures but includes the following: [x] Data and vital sign review and interpretation [x] Patient assessment, examination and intervention [x] Documentation [x] Medication orders and management Critical Care Time (min): 30 Coding Level of Care Code Acute Box Lining Machine Feeder for [facility] Fwd Diagnoses Dyspnea on exertion R06.00 Atrial flutter, paroxysmal I48.92 Atrial fibrillation I48.20 Atrial fibrillation type: unspecified chronic HTN (hypertension) I10 Hypertension type: essential hypertension TRACY (obstructive sleep apnea) G47.33 Dyslipidemia E78.5
--- NOTE | 2020-10-11 12:00 | PM.ACPR ---
Procedure/Consent Time out: Time Out Performed: Yes Consent: Consent for Procedure: Consent obtained from patient, Risks & Benefits reviewed and Agrees to proceed with procedure Procedure Narrative: BRENDON Procedure note Indication: Symptomatic atrial flutter Sedation: Propofol by anesthesia Procedure was explained to the patient in detail and informed consent was obtained. Timeout was called. After achieving adequate sedation, the probe was inserted on first attempt. No blood on the probe post procedure. Prelim report: Moderately decreased left ventricular systolic function. No left atrial or left atrial appendage mass or thrombus visualized. No ASD. Tiny PFO identified. Full report to follow. Cardioversion procedure note. Indication: Symptomatic atrial flutter atrial fibrillation Anticoagulation: Xarelto Sedation: Propofol by anesthesia Pads were placed anteroposteriorly. After ensuring no left atrial or left atrial appendage thrombus and adequate patient sedation, 150 J of synchronized biphasic shock ?1 was administered with anglican of normal sinus rhythm. Patient tolerated the procedure well. Recovery: In unit Acute Procedures Epistaxis Control: Time out performed: Yes
--- NOTE | 2020-10-11 12:01 | W.PM.OPSUD ---
Surgery/Procedure H&P Update DATE OF PROCEDURE: October 11, 2020 DATE H&P PERFORMED: 10/09/20 PREOP DIAGNOSIS: syncope related to atrial fibrillation PLANNED PROCEDURE: Operation Date: 10/11/20 09:00 Proposed Procedures p BRENDON(Not Applicable) and cardioversion- Evelyn Shin MD Patient was seen and examined this morning. Decision to proceed with BRENDON and cardioversion with anesthesia. ASA 3 and airway 2.
--- NOTE | 2020-10-11 13:35 | ANE.PACU2 ---
Inpatient post-anesthesia follow up: Airway intact: Yes Vital signs: Temperature 98.1 F Pulse Rate 66 Respiratory Rate 16 Blood Pressure 90/72 Pulse Oximetry 96 Oxygen Delivery Me thod Room Air Oxygen Flow Rate Fraction of Inspir ed Oxygen 21 Hydration adequate: Yes Nausea and vomiting: No Pain level: 1 Mental status: Baseline
--- NOTE | 2020-10-11 15:05 | PC.NURSE ---
Dr Shin on unit to check on patient discussed with nursing staff patient diet choice verbal instructions to add Keto feignedly low carb to patients diet instructions
--- NOTE | 2020-10-11 18:32 | PC.NURSE ---
patient has been walking in bhatti with spouse this after noon and took a shower patient denies any pain or dizziness patient remains in NSR after cardioversion
--- NOTE | 2020-10-11 22:00 | ECG_ITS ---
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 Measurements Intervals [place] Rate: 63 P: 36 MA: 221 QRS: 14 QRSD: 105 T: 91 QT: 409 QTc: 421 Interpretive Statements SINUS RHYTHM WITH FIRST DEGREE AV BLOCK NONSPECIFIC T-WAVE ABNORMALITY Compared to ECG 10/11/2020 10:39:30 Intraventricular conduction delay no longer present T-wave abnormality still present Electronically Signed On 10-12-2020 22:36:47 CDT by Evelyn Shin M.D. [id number]
[2020-10-11] MEDS: sotalol 80 mg Tablet 40 MG PO (22:18)
[2020-10-12] VITALS (10 sets, daily range): BP systolic 104–123; BP diastolic 66–79; PULSE 58–73; RESP 14–20; TEMP 36.4–36.8; O2SAT 94–97
[2020-10-12] MEDS: levothyroxine 150 mcg Tablet 75 MCG PO (05:11)
[2020-10-12 05:19] LABS: Basophils # 0.1 10^3/uL (0.0-0.1); Basophils % 0.7 %; Eosinophils # 0.5 10^3/uL (0.0-0.8); Eosinophils % 5.5 %; Hematocrit 43.9 % (42.0-52.0); Hemoglobin 14.6 g/dL (11.7-16.6); Lymphocytes % 21.7 %; Mean Corpuscular HGB Conc 33.3 g/dL (30.0-36.0); Mean Corpuscular Hemoglobin 29.7 pg (28.0-34.0); Mean Corpuscular Volume 89.2 fL (80-94); Mean Platelet Volume 9.4 fL (7.4-10.4); Monocytes # 0.8 10^3/uL (0.2-0.9); Monocytes % 9.2 %; Neutrophils # 5.63 10^3/uL (1.8-7.7); Neutrophils % 62.6 %; Nucleated Red Blood Cells % 0 %; Platelet Count 190 10^3/cmm (130-400); Red Blood Count 4.92 10^6/uL (4.1-5.3); Red Cell Distribution Width 12.1 % (12.1-15.1)
[2020-10-12 05:49] LABS: Alanine Aminotransferase 36 U/L (0-41); Albumin Level 4.2 g/dL (3.5-5.2); Alkaline Phosphatase 65 IU/L (40-130); Anion Gap 12.9 (5-19); Aspartate Amino Transferase 17 U/L (0-40); Blood Urea Nitrogen 25 mg/dL (6-20); Carbon Dioxide 26 mmol/L (22-29); Chloride 100 mmol/L (98-107); Globulin 2.3 g/dL (1.3-4.6); Glomerular Filtration Rate 69.2 mL/min (90-130); Glucose 89 mg/dL (65-115); Magnesium 2.1 mg/dL (1.7-2.3); NT Pro B Type Natriuretic Pept 100 pg/mL (0-125); Osmolality Calculated 284 mOsm/kg (285-295); Potassium 3.9 mmol/L (3.5-5.1); Sodium 135 mmol/L (136-145); Total Bilirubin 0.5 mg/dL (0.15-1.2); Total Protein 6.5 g/dL (6.6-8.7)
--- NOTE | 2020-10-12 06:34 | PM.PN ---
Subjective Subjective: Interval history: Patient feels well and is walking around the bhatti. Medications: Reviewed: Yes Vitals/I&O/Wt Last Vital Signs Temp 98.1 F 10/12/20 03:46 Pulse 63 10/12/20 06:00 Resp 18 10/12/20 03:46 BP 123/74 10/12/20 03:46 Pulse Ox 95 10/12/20 03:46 10/11/20 10/11/20 10/12/20 14:59 22:59 06:59 Intake Total 898.5 / 898.5 500 / 1398.5 120 / 1518.5 Output Total Balance 898.5 / 898.5 499 / 1397.5 120 / 1517.5 Weight last 48 hrs Weight 223 lb Physical Exam Narrative: EXAM NARRATIVE: GEN: sitting in bed, NAD HEENT/Neck: NO JVD, PEERL, No pallor or icterur RS: CTAB/L, No wheezes or rales CVS: S1, S2 regular PA: soft, NT, ND, BS+ normoactive HYDROELECTRIC SYSTEMS TECHNICIAN: AAOx 3, No FND Ext: No edema, cyanosis or clubbing Data : 10/12/20 04:16 10/12/20 04:16 A&P Assessment and plan (1) Dyspnea on exertion: Likely in setting of symptomatic A. flutter -No ischemia on stress test this morning. Status: Acute (2) Atrial flutter, paroxysmal: A. fib/A. flutter -Patient underwent BRENDON guided cardioversion this morning with druze of sinus rhythm. Moderately decreased left ventricular systolic function. -I will stop metoprolol and propafenone and start him on sotalol 80 mg am and 40 mg PM. -intermittent PVC's on telemetry. -continue EKG and telemetry monitoring for sotalol therapy. -Continue Xarelto. -I will refer him to [place] as an outpatient for another ablation procedure. -Discharge home after am dose. -f/u EKG in 1 week -f/u in [facility] in 3 weeks Status: Acute (3) Atrial fibrillation: h/o A. fib s/p ablation x1. Status: Acute Qualifiers: Atrial fibrillation type: unspecified chronic Qualified Code(s): I48.20 - Chronic atrial fibrillation, unspecified (4) HTN (hypertension): Status: Acute Qualifiers: Hypertension type: essential hypertension Qualified Code(s): I10 - Essential (primary) hypertension (5) TRACY (obstructive sleep apnea): Status: Acute (6) Dyslipidemia: Status: Acute Additional A&P Information Tachycardia induced cardiomyopathy Tiny PFO DVT prophylaxis: On full dose anticoagulation Attestations Medical Necessity Statement*: needs hospital stay for sotalol therapy Time Spent in Patient Care: 16 - 35 minutes (>than 50% of time spent in counselling and/or direct pt care on unit). Coding Level of Care Code Acute Software Support Engineer for g Fwd Diagnoses Dyspnea on exertion R06.00 Atrial flutter, paroxysmal I48.92 Atrial fibrillation I48.20 Atrial fibrillation type: unspecified chronic HTN (hypertension) I10 Hypertension type: essential hypertension TRACY (obstructive sleep apnea) G47.33 Dyslipidemia E78.5
[2020-10-12] MEDS: sotalol 80 mg Tablet PO (08:10)
[2020-10-12] MEDS: rivaroxaban 10 mg Tablet 20 MG PO (08:10)
--- NOTE | 2020-10-12 09:42 | ECG_ITS ---
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 Measurements Intervals [place] Rate: 56 P: 39 AK: 216 QRS: -2 QRSD: 105 T: 210 QT: 458 QTc: 445 Interpretive Statements SINUS BRADYCARDIA WITH FIRST DEGREE AV BLOCK NONSPECIFIC T-WAVE ABNORMALITY Compared to ECG 10/12/2020 01:34:28 Sinus rhythm no longer present Intraventricular conduction delay no longer present T-wave abnormality still present Electronically Signed On 10-12-2020 22:32:52 CDT by Evelyn Shin M.D. [id number]
--- NOTE | 2020-10-12 10:00 | ECG_ITS ---
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 Measurements Intervals [place] Rate: 62 P: 52 CO: 215 QRS: 38 QRSD: 114 T: -81 QT: 432 QTc: 441 Interpretive Statements SINUS RHYTHM WITH FIRST DEGREE AV BLOCK MODERATE INTRAVENTRICULAR CONDUCTION DELAY [110+ ms QRS DURATION] NONSPECIFIC T-WAVE ABNORMALITY Compared to ECG 10/11/2020 22:12:05 Intraventricular conduction delay now present T-wave abnormality still present Electronically Signed On 10-12-2020 22:34:00 CDT by Evelny Shin M.D. [id number]
[2020-10-12] MEDS: acetaminophen 325 mg Tablet 650 MG PO (18:08)
--- NOTE | 2020-10-12 20:22 | PC.NURSE ---
Received report from JUDAH Veras. Patient up ambulating in bhatti. Had c/o of headache which was treated with Tylenol as documented. Patient denies pain or other needs presently. No distress observed. Discussed Sotalol timing along with needed EKG and possible discharge home tomorrow. Patient verbalized complete understanding.
[2020-10-12] MEDS: sotalol 80 mg Tablet 40 MG PO (21:53)
--- NOTE | 2020-10-12 22:01 | PC.NURSE ---
Patient up ambulating in bhatti. Returned to room and administered scheduled medication. EKG ordered per Dr Shin instructions. Patient denies pain at this time. No distress observed.
--- NOTE | 2020-10-13 | ECG_ITS ---
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 Measurements Intervals [place] Rate: 58 P: 56 ME: 199 QRS: 6 QRSD: 109 T: -17 QT: 451 QTc: 445 Interpretive Statements SINUS BRADYCARDIA NONSPECIFIC T-WAVE ABNORMALITY Compared to ECG 10/12/2020 10:31:06 First degree AV block no longer present T-wave abnormality still present Electronically Signed On 10-13-2020 15:06:41 CDT by Matilde Sutherland M.D. [id number]
--- NOTE | 2020-10-13 00:19 | PC.NURSE ---
EKG completed post sotalol administration.
[2020-10-13 04:00] VITALS: BP 94/56; PULSE 55; RESP 15; TEMP 36.5; O2SAT 93
[2020-10-13] MEDS: levothyroxine 150 mcg Tablet 75 MCG PO (04:03)
--- NOTE | 2020-10-13 04:09 | PC.NURSE ---
Patient requested medication early to cluster with labs and vitals so that he may get some sleep.
[2020-10-13 04:53] VITALS: PULSE 55
[2020-10-13 07:24] VITALS: BP 113/74; PULSE 64; RESP 16; TEMP 36.4; O2SAT 94
[2020-10-13] MEDS: rivaroxaban 10 mg Tablet 20 MG PO (08:50)
[2020-10-13] MEDS: sotalol 80 mg Tablet PO (08:50)
--- NOTE | 2020-10-13 09:17 | P.DS_ITS ---
Discharge Providers Date of Admission: 10/09/20 16:09 Date of Discharge: October 13, 2020 Attending Provider at Admission: Evelyn Shin MD Attending Provider at Discharge: Evelyn Shin MD Primary Care Provider: Dave Wells MD Diagnoses at Discharge Discharge Diagnosis (1) Dyspnea on exertion: Status: Acute Permanent problem details: -improved (2) Atrial flutter, paroxysmal: Status: Acute Permanent problem details: on sotalol 80 mg am and 40 mg PM and xarelto 20 mg daily. -Refer for A. fib/flutter ablation at [facility]. -f/u EKG in 1 week (3) Atrial fibrillation: Status: Acute Qualifiers: Atrial fibrillation type: unspecified chronic Qualified Code(s): I48.20 - Chronic atrial fibrillation, unspecified (4) HTN (hypertension): Status: Acute Qualifiers: Hypertension type: essential hypertension Qualified Code(s): I10 - Essential (primary) hypertension (5) TRACY (obstructive sleep apnea): Status: Acute (6) Dyslipidemia: Status: Acute Reason for Visit Reason for Visit: chest pain Brief History: 54 year old male with history of hypertension, dyslipidemia and previous history of paroxysmal A. fib x 26 years s/p a. fib ablation x 1 in Feb 2014. He also has sleep apnea and is complaint with CPAP. He went into A. fib few weeks back and continues to complains of fatigue, dizziness and SOB. He took flecainide and that has not helped He had a stress test as per patient several years back. None in our system. He has stayed in atrial flutter/fib for last several weeks. He is on propafenone 225 mg 3 times daily. He was admitted for BRENDON/CV for symptomatic atrial flutter/atrial fibrillation. He has been having dizziness and shortness of breath that has been progressively getting worse. No orthopnea, PND. No lower extremity swelling. at bedside at the time of examination. Hospital Course Hospital Course He underwent stress test that showed no ischemia. HE underwent BRENDON guided cardioversion with mormon of SR. He was also found to have moderately decreased LV systolic function. He was switched from propafenone to sotalol and was monitored on telemetry and serial EKG's after sotalol initialtion. He remained in SR/ SB and isolated PVC's were also noted. He did well and his symptoms of tiredness and SOB improved. Physical Exam Narrative: EXAM NARRATIVE: GEN: sitting in bed, NAD HEENT/Neck: NO JVD, PEERL, No pallor or icterur RS: CTAB/L, No wheezes or rales CVS: S1, S2 regular PA: soft, NT, ND, BS+ normoactive HAIR MIXER: AAOx 3, No FND Ext: No edema, cyanosis or clubbing Discharge Data Data Completed and Pending: Completed Studies During Hospitalization Category Date Time Status Sestamibi Stress Test Request Routi ne Exams 10/09/20 18:11 Completed XR chest 1V alison ble [id number] Routine Exams 10/11/20 07:31 Completed NM barbara perf SPECT r/s* [id number] Routin e Nuc Med 10/10/20 18:11 Completed CV echo transesop hageal [id number] Routi ne Ultrasound 10/11/20 09:00 Completed Laboratory Results - last 48 hr 10/12/20 10/12/20 04:16 04:16 WBC 9.0 RBC 4.92 Hgb 14.6 Hct 43.9 MCV 89.2 MCH 29.7 MCHC 33.3 RDW 12.1 Plt Count 190 MPV 9.4 Neut % (Auto) 62.6 Lymph % (Auto) 21.7 Steele % (Auto) 9.2 Eos % (Auto) 5.5 Baso % (Auto) 0.7 Neut # (Auto) 5.63 Lymph # (Auto) 2.0 Steele # (Auto) 0.8 Eos # (Auto) 0.5 Baso # (Auto) 0.1 Nucleated RBC % (a uto) 0 Nucleated RBCs # 0.0 Sodium 135 L Potassium 3.9 Chloride 100 Carbon Dioxide 26 Anion Gap 12.9 BUN 25 H Creatinine 1.1 GFR Calculation 69.2 L Glucose 89 Calculated Osmolal ity 284 L Calcium 9.0 Magnesium 2.1 Total Bilirubin 0.5 AST 17 ALT 36 Alkaline Phosphata se 65 NT-Pro-B Natriuret Pep 100 Total Protein 6.5 L Albumin 4.2 Globulin 2.3 Imaging^: Other Imaging: Attestation: I personally reviewed and interpreted this imaging study as follows: Radiologist's impression: Lexiscan MPI (10/10/20) IMPRESSIONS 1. Myocardial perfusion imaging is normal. Attenuation artifact and apical lateral wall. 2. The left ventricular ejection fraction is reduced with a value of 39%. 3. There is global hypokinesis. 4. No coronary ischemia based on the study. 5. No prior similar studies to compare. BRENDON (10/11/20) CONCLUSIONS 1. Normal left ventricular cavity size. Moderately decreased left ventricular systolic function. Left ventricular ejection fraction is estimated at 35%. Moderate global hypokinesis. 2. Normal right ventricular size and systolic function. 3. Normal pulmonary artery pressure. 4. No left atrial or left atrial appendage thrombus. 5. Mild tricuspid valve regurgitation. Vitals: Last Vital Signs Temp 97.6 F 10/13/20 07:24 Pulse 64 10/13/20 07:24 Resp 16 10/13/20 07:24 BP 113/74 10/13/20 07:24 Pulse Ox 94 10/13/20 07:24 Discharge Plan Discharge Patient Disposition: Home Condition: Stable Prescriptions: New sotalol 80 mg Tablet 80 mg PO .0900, 2100 Qty: 135 RF: 1 Continued ascorbate calcium (vitamin C) 500 mg tablet 500 mg PO DAILY RF: 0 Xarelto 20 mg tablet 20 mg PO DAILY Qty: 30 RF: 0 multivitamin Tablet 1 tab PO DAILY RF: 0 levothyroxine 75 mcg tablet 75 mcg PO DAILY RF: 0 testosterone cypionate 200 mg/mL oil 200 mg IM .EVERY 10 DAYS RF: 0 Carditone 1 tab PO DAILY RF: 0 zinc 1 cap PO DAILY RF: 0 Discontinued metoprolol tartrate 25 mg tablet 25 mg PO BID RF: 0 tramadol 50 mg tablet 50 mg PO BID PRN (Reason: Pain) RF: 0 propafenone 225 mg tablet 225 mg PO TID Qty: 90 RF: 2 aspirin 325 mg Tablet 325 mg PO DAILY RF: 0 Discharge Orders: Discharge Order (Routine); Ordered 10/13/20 Ordered By: Evelyn Shin Other Ambulatory Orders: ECG nonstress test (Routine) Timeframe: 1 Week Facility: [facility] - Location: Respiratory Therapy Ordered By: Evelyn Shin Referrals: Evelyn Shin MD [Physician] - 10/31/20 2:15 pm (You have an appointment with Dr. Shin at [facility] in October 31 at 2:15pm) Discharge Diet: Advance as tolerated Discharge Activity: Increase activity as tolerated and May return to work/school without restrictions Patient Instructions: Sotalol (By mouth), Atrial Fibrillation (DC), Cardioversion (DC), Cardiac Ablation (DC), Opioid Safety Activity Restrictions/Additional Instructions: Please stop by [facility] inn 1 week to have an EKG done. You do not need an appointment to do this. Please checkin at admissions prior to having this done. Thank you Discharge Attestations Time Spent in Discharge Care*: less than 30 min Quality Metrics Clinical Quality Measures During this hospital stay, did patient experience: None Coding Level of Care Code Acute Chg FW DC note Diagnoses Dyspnea on exertion R06.00 Atrial flutter, paroxysmal I48.92 Atrial fibrillation I48.20 Atrial fibrillation type: unspecified chronic HTN (hypertension) I10 Hypertension type: essential hypertension TRACY (obstructive sleep apnea) G47.33 Dyslipidemia E78.5
--- NOTE | 2020-10-13 10:00 | ECG_ITS ---
[facility] Test Date: 2020-10-13 Pat Name: Trevor Betancourt Department: Room: 102 Gender: Male Project Design Engineer: : 1965 Requested By: Evelyn Shin Order Number: [id number] Kaushik MD: Matilde Sutherland M.D. Measurements Intervals [place] Rate: 62 P: 31 WI: 210 QRS: -15 QRSD: 101 T: 33 QT: 438 QTc: 447 Interpretive Statements SINUS RHYTHM WITH FIRST DEGREE AV BLOCK WITH OCCASIONAL VENTRICULAR PREMATURE COMPLEXES NONSPECIFIC T-WAVE ABNORMALITY Compared to ECG 10/13/2020 00:13:48 Ventricular premature complex(es) now present First degree AV block now present Sinus bradycardia no longer present T-wave abnormality still present Electronically Signed On 10-13-2020 15:09:14 CDT by Matilde Sutherland M.D. [id number]
[2020-10-13 10:35] VITALS: BP 113/74; PULSE 64; RESP 16; TEMP 36.4; O2SAT 94
== END 2020-10-13 10:59 | disposition home or self-care (01) | DRG 310 ==
PROVIDERS: Admitting Provider Internal Medicine Cardiovascular Disease; PCP Family Medicine; Visit Provider Internal Medicine Cardiovascular Disease
PROC: 5A2204Z Restoration of Cardiac Rhythm, Single (ICD-10-PCS; CPT 93312; principal; 2020-10-11 09:00)
DX: I48.20 Chronic atrial fibrillation, unspecified (principal); I10 Essential (primary) hypertension; E78.5 Hyperlipidemia, unspecified; G47.33 Obstructive sleep apnea (adult) (pediatric); I42.8 Other cardiomyopathies; Z79.01 Long term (current) use of anticoagulants
CPT/HCPCS: 36415; 71045; 78452; 80053; 80061; 83735; 83880; 84439; 84443; 84481; 85025; 87426; 87635; 93005; 93017; 93312; 93320; 93325; 94660; A9500; J2704; J2785; J7030

== ENCOUNTER → 2021-05-16 10:49 | Outpatient (BNVA) | payer OTHER, SELFPAY | PROVIDERS: PCP Family Medicine Adult Medicine; Visit Provider Family Medicine Adult Medicine | DX: E03.9 Hypothyroidism, unspecified (principal); E78.5 Hyperlipidemia, unspecified; I10 Essential (primary) hypertension; I50.42 Chronic combined systolic (congestive) and diastolic (congestive) heart failure | CPT/HCPCS: 80053; 80061; 84443; 85025 ==

== ENCOUNTER 2021-10-11 15:01 | Outpatient (CLI) | payer OTHER, SELFPAY ==
--- NOTE | 2021-10-11 | USCV_ITS ---
Trevor Betancourt Age: 55 Gender: M : 1965 Exam Date: 10/11/2021 15:17 Ordering Phys: Evelyn Shin MD ([email or web address]) Technologist: Vicky Dodge Exam Location: [facility] [place] Indication: Congestive heart failure, atrial fibrillation BP: 117 / 78 HR: 56 Rhythm: Atrial fibrillation Technical Quality: Adequate MEASUREMENTS (Male / Female) Normal Values 2D ECHO LV Diastolic Diameter PLAX 3.7 cm 4.2 - 5.9 / 3.9 - 5.3 cm LV Systolic Diameter PLAX 2.6 cm LV Chamber Size 4.7 cm IVS Diastolic Thickness 1.5 cm 0.6 - 1.0 / 0.6 - 0.9 cm IVS Systolic Thickness 1.9 cm LVPW Diastolic Thickness 1.4 cm 0.6 - 1.0 / 0.6 - 0.9 cm LVPW Systolic Thickness 1.6 cm RV Chamber Size 3.6 cm LVOT Diameter 2.0 cm LV Ejection Fraction 2D Teich 57.1 % LV Ejection Fraction MOD 2C 64.5 % LV Ejection Fraction 2C AL 64.6 % LA Diameter 2.7 cm LA Width 3.7 cm LA Height 5.0 cm RA Width 5.1 cm RA Height 5.8 cm Aorta at Sinotubular Diameter 3.1 cm IVC Diameter 1.5 cm M-MODE Aortic Annulus Diameter 0.1 cm LA Ao Ratio MM 34.6 MV E Point Septal Separation 0.4 cm DOPPLER AV Peak Velocity 177.0 cm/s LVOT Peak Velocity 101.0 cm/s AV Area Cont Eq vti 2.0 cm squared AV Area Cont Eq pk 1.9 cm squared MV Area PHT 2.9 cm squared Mitral E to A Ratio 1.4 MV E' Velocity 86.0 cm/s TR Peak Velocity 290.8 cm/s TR Peak Gradient 33.8 mmHg TR Mean Velocity 204.9 cm/s TR Mean Gradient 19.0 mmHg TR Velocity Time Integral 94.5 cm TV Peak E Velocity 59.0 cm/s Right Atrial Pressure 3.0 mmHg Pulmonary Artery Systolic Pressu 36.8 mmHg PV Peak Velocity 76.0 cm/s QpQs Shunt Ratio 1.8 RV Acceleration Time 0.2 s RV Ejection Time 0.3 s RV AcT/ET 0.6 FINDINGS Left Ventricle Normal left ventricular size, systolic function and wall thickness, with no regional wall motion abnormalities. Left ventricular ejection fraction is estimated at 60 %. Normal diastolic filling pattern. Right Ventricle Normal right ventricular size and systolic function. Right ventricular systolic pressure 40 mmHg. Right Atrium Normal right atrial size. Left Atrium Normal left atrial size. Mitral Valve Structurally normal mitral valve. No mitral valve stenosis. Trace mitral valve regurgitation. Aortic Valve Structurally normal trileaflet aortic valve. No aortic valve stenosis. No aortic valve regurgitation. Tricuspid Valve Structurally normal tricuspid valve. No tricuspid valve stenosis. Mild to moderate tricuspid valve regurgitation. Pulmonic Valve Structurally normal pulmonic valve. No pulmonary valve stenosis. Trace pulmonary valve regurgitation. Pericardium No pericardial effusion. Aorta Normal size aortic root and proximal ascending aorta. IVC Normal inferior vena cava. CONCLUSIONS 1. Normal left ventricular size, systolic function and wall thickness, with no regional wall motion abnormalities. Left ventricular ejection fraction is estimated at 60 %. Normal diastolic filling pattern. 2. Normal right ventricular size and systolic function. 3. Mild pulmonary hypertension with pulmonary artery pressure estimated at 40 mmHg. 4. Mild to moderate tricuspid valve regurgitation. 5. When compared to previous echocardiogram dated 10/11/2020, left ventricle systolic function has improved. Evelyn Shin MD (Electronically Signed) Final Date: 13 October 2021 13:26 S
== END 2021-10-11 15:02 | disposition home or self-care (01) ==
LOC: RAD 15:04
PROVIDERS: PCP Family Medicine Adult Medicine; Visit Provider Internal Medicine Cardiovascular Disease
DX: I50.9 Heart failure, unspecified (principal); I48.91 Unspecified atrial fibrillation; I27.20 Pulmonary hypertension, unspecified; I07.1 Rheumatic tricuspid insufficiency
CPT/HCPCS: 93306

== ENCOUNTER 2022-05-26 14:14 | Observation (INO) | payer OTHER, SELFPAY ==
[2022-05-23 14:35] VITALS: BMI 34.4
[2022-05-26] VITALS (40 sets, daily range): BP systolic 54–129; BP diastolic 40–101; PULSE 54–117; RESP 0–26; TEMP 35.7–36.3; O2SAT 88–98
[2022-05-26] MEDS: sodium chloride 0.9% 1,000 ML 30 ML IV (10:29)
--- NOTE | 2022-05-26 10:40 | ECG_ITS ---
[facility] Test Date: 2022-05-26 Pat Name: Trevor Betancourt Department: Room: Gender: Male Medical Underwriter: : 1965 Requested By: Leonardo Montanez Order Number: [id number] Kaushik MD: Leonardo Montanez M.D. Measurements Intervals [place] Rate: 116 P: 0 NJ: 0 QRS: 8 QRSD: 100 T: 84 QT: 362 QTc: 505 Interpretive Statements ATRIAL FLUTTER WITH RAPID VENTRICULAR RESPONSE Compared to ECG 10/13/2020 09:52:12 ST (T wave) deviation now present Sinus rhythm no longer present First degree AV block no longer present T-wave abnormality no longer present Electronically Signed On 05-26-2022 15:16:33 LEAD WEB APPLICATION DEVELOPER by Leonardo Montanez M.D. [id number]
--- NOTE | 2022-05-26 11:08 | ANES.PREANE2 ---
Pre-Anesthetic Assessment Height/Weight: Height 1.78 m Weight 108.862 kg Temp Pulse Resp BP Pulse Ox O2 Del Method 97.4 F L 117 H 18 102/80 97 05/26/22 10:22 05/26/22 10:22 05/26/22 10:22 05/26/22 10:22 05/26/22 10:22 05/26/22 10:22 Preop Diagnosis: syncope related to atrial fibrillation Operation Date: 05/26/22 11:30 Proposed Procedures p Keith/Cardioversion 68841/04920, I48.92,I48.91(Not Applicable) - Leonardo Montanez M.D s Cardioversion(Not Applicable) - Leonardo Montanez M.D Familial anesthetic complications: None Was Beta Butch taken within 24 hours: Yes Was Clonidine taken within 24 hours: N/A Last intake: Intake Last Liquid Date 05/25/22 Last Liquid Time 20:30 Last Solid Date 05/25/22 Last Solid Time 20:00 Social No alcohol and No tobacco Exam alert, oriented x 3 and clear to auscultation bilaterally Airway Submandibular: within normal limits Cervical ROM: within normal limits Mallampati: Class III Dentition: full and other ([place]) History/ROS No significant history except as noted and No significant complaints Pulmonary Othopnea and Sleep Apnea (CPAP) CV/HEM Arrythmia (A. Flutter), Coronary Artery Disease and Congestive Heart Failure EF 60% None reported Hepatic None reported GI None reported Metabolic Thyroid Disease [facility] [place] None reported Neuropsych Neuropathy and Seizure (As a teenager) Anesthetic Plan ASA status: 3 Anesthesia: Anesthesia Evaluation, General and MAC Risk of > 500 ml blood loss (7ml/kg in children): No Medications/Allergies Home Medications Medication Instructions Recorded Confirmed Last Taken Type ascorbate calcium (vitamin C) 500 500 mg PO DAILY 05/26/19 05/26/22 05/25/22 History mg tablet Carditone 1 tab PO DAILY 10/10/20 05/26/22 05/25/22 History multivitamin 1 tab PO DAILY 10/10/20 05/26/22 05/25/22 History cholecalciferol (vitamin D3) 25 25 mcg PO DAILY 11/20/21 05/26/22 05/25/22 History mcg (1,000 unit) capsule magnesium oxide 400 mg PO DAILY 11/20/21 05/26/22 05/25/22 History levothyroxine 75 mcg tablet See Rx Instructions .Route 02/19/22 05/26/22 05/26/22 Rx .COMPLEX #90 tabs testosterone cypionate 200 mg/mL 200 mg IM .EVERY 10 DAYS see 03/06/22 05/26/22 05/25/22 Rx intramuscular oil pharmacy comments-pt states not taken for 3-4 weeks #3 mL niacin 1,000 mg tablet,extended 1,000 mg PO DAILY #90 tabs 05/15/22 05/26/22 05/25/22 Rx release rivaroxaban 20 mg tablet (Xarelto) 20 mg PO DAILY 05/22/22 05/26/22 05/26/22 History zinc 1 cap PO DAILY PRN Cold Symptoms 05/22/22 05/26/22 05/25/22 History sotalol 80 mg tablet 40 mg PO BID #60 tabs 05/26/22 05/26/22 05/26/22 Rx Allergies Allergy/AdvReac Type Severity Reaction Status Date / Time ibuprofen Allergy Severe Unknown Verified 05/26/22 10:20 Current Medications Generic Name Dose Route Start Last Admin Trade Name Freq PRN Reason Stop Dose Admin Sodium Chloride 1,000 mls @ 30 mls/hr 05/26/22 10:00 05/26/22 10:29 Sodium Chloride 0.9% IV 05/27/22 09:59 30 mls/hr .Q24H GENOVEVA Administration PFSH Anesthesia Medical History Atrial fibrillation Dyslipidemia History of coronary angiogram Hypothyroidism Obesity (BMI 30.0-34.9) TRACY (obstructive sleep apnea) Surgical History H/O cardiac radiofrequency ablation S/P hernia repair Family History Grandmother CAD (coronary artery disease) MATERNAL Diabetes Mother Parkinson disease Grandfather CAD (coronary artery disease) MATERNAL S/P CABG (coronary artery bypass graft) Social History Smoking and tobacco status: never smoked Alcohol intake: current Alcohol intake frequency: few times a month Alcohol type: beer Household members: spouse Marital status: service: No Current occupational status: employed Current gender identity: Male Jacki/Uatsdin: Protestant Data Anesthesia Cardiac Studies: Echocardiogram 10/11/21 Echocardiogram Ultrasound 03/30/20 Transesophageal Echocardiogram 10/11/20 Sestamibi Stress Test (Cardiology) 10/09/20
--- NOTE | 2022-05-26 11:21 | USCV_ITS ---
Trevor Betancourt Age: 56 Gender: M : 1965 Exam Date: 05/26/2022 11:48 Ordering Phys: Leonardo Montanez M.D ([email or web address]) Technologist: Armando Haney [place]am Location[place] [facility] [place] Indication: afib BP: / HR: Rhythm: Sinus Technical Quality: Excellent MEASUREMENTS (Male / Female) Normal Values Medications Complications None Proc. Components After anesthesia team administered sedation, we performed intubation of BRENDON probe. FINDINGS Left Ventricle Left ventricle is normal in size. LV systolic function is moderately reduced. Right Ventricle Normal in size and function Right Atrium Normal in size Left Atrium Appears to be dilated. LA Appendage No left atrial appendage thrombus IA Septum Possible small PFO Mitral Valve Structurally normal mitral valve. Trace mitral regurgitation Aortic Valve Structurally normal aortic valve. Tricuspid Valve Structurally normal tricuspid valve. Pulmonic Valve Grossly normal Pericardium Normal Aorta Mild atherosclerotic plaque CONCLUSIONS LV systolic function is moderately reduced. No left atrial appendage thrombus is seen. Possible small PFO. Trace mitral regurgitation. Mild atherosclerotic aortic plaque is seen. Leonardo Montanez MD (Electronically Signed) Final Date: 31 May 2022 10:45 S
--- NOTE | 2022-05-26 11:40 | W.PM.OPSUD ---
Surgery/Procedure H&P Update DATE OF PROCEDURE: May 26, 2022 DATE H&P PERFORMED: 05/22/22 H&P UPDATE INFORMATION: I have reviewed H&P completed within last 30 days, I have examined patient prior to procedure and No changes to prior documentation PREOP DIAGNOSIS: Atrial flutter/atrial fibrillation PRIMARY INDICATION FOR PROCEDURE: Atrial flutter/atrial fibrillation PLANNED PROCEDURE: Operation Date: 05/26/22 11:30 Proposed Procedures p Keith/Cardioversion [id number]/35007, I48.92,I48.91(Not Applicable) - Leonardo Montanez M.D s Cardioversion(Not Applicable) - Leonardo Montanez M.D Anesthesia team sedating patient PHYSICAL EXAM: alert, oriented x 3, clear to auscultation bilaterally and regular rate & rhythm
--- NOTE | 2022-05-26 12:11 | PC.NURSE ---
200 J shock delivered at 1201
--- NOTE | 2022-05-26 12:15 | PM.PROC ---
Procedure Note: Date of procedure: 05/26/22 Pre-procedure diagnosis: Atrial flutter with rapid ventricular rate Post-procedure diagnosis: other (Normal sinus rhythm) Procedure: After anesthesia team sedated the patient, we proceeded with transesophageal echocardiogram. Images were obtained. No GENNA thrombus was seen. At this time we proceeded with DCCV. 200 J synchronized shock was delivered that converted patient back to normal sinus rhythm. Performing Provider: Leonardo Montanez Complications: None Condition: stable Disposition: same day Coding Level of Care Code Acute Code for Francy Sara
--- NOTE | 2022-05-26 12:45 | ECG_ITS ---
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 Measurements Intervals [place] Rate: 61 P: 57 MI: 201 QRS: 52 QRSD: 96 T: -5 QT: 443 QTc: 447 Interpretive Statements SINUS RHYTHM SEPTAL MYOCARDIAL INFARCTION , PROBABLY OLD [40+ ms Q WAVE IN V1/V2] Compared to ECG 05/26/2022 10:40:56 Atrial flutter no longer present ST (T wave) deviation no longer present Myocardial infarct finding still present Electronically Signed On 05-26-2022 15:15:57 BLENDING SUPERVISOR by Leonardo Montanez M.D. [id number]
--- NOTE | 2022-05-26 13:00 | PC.NURSE ---
Pt was admitted to ICU at around 1400 on 2L NC. BP was 74/59. Fingernail beds were dusky, cap refill was >3 seconds with o2 at 91%. Dr. Montanez at bedside and aware.
[2022-05-26] MEDS: lactated ringers 500 ML 999 ML IV (13:38)
--- NOTE | 2022-05-26 14:15 | XRR_ITS ---
PROCEDURE INFORMATION: Exam: XR Chest Exam date and time: 05/26/2022 3:12 PM Age: 56 years old Clinical indication: Shortness of breath TECHNIQUE: Imaging protocol: Radiologic exam of the chest. Views: 1 view. COMPARISON: CR XR chest 1V portable [id number] 10/11/2020 7:44 AM FINDINGS: Lungs: Unremarkable. No consolidation. Pleural spaces: Unremarkable. No pleural effusion. No pneumothorax. Heart/Mediastinum: Cardiomegaly. Bones/joints: Unremarkable. XR/XR chest 1V portable [id number] IMPRESSION: No acute findings.
--- NOTE | 2022-05-26 14:16 | ANE.PACU2 ---
Inpatient post-anesthesia follow up: Airway intact: Yes Vital signs: Temperature 96.2 F Pulse Rate 64 Respiratory Rate 17 Blood Pressure 72/60 Pulse Oximetry 92 Oxygen Delivery Me thod Nasal Cannula Oxygen Flow Rate 5 Fraction of Inspir ed Oxygen Hydration adequate: Yes Nausea and vomiting: No Pain level: 2 Mental status: Baseline Additional Comments: Some light headedness , hypotension, hypoxia (SpO2 89%-92% on 5L NC)--bolused fluid, alka, atropine and norepi (20mcg) IV with minimal improvement. Discussed with Dr. Montanez, to ICU.
--- NOTE | 2022-05-26 14:42 | PM.HP ---
Providers/Chief Complaint Admitting Physician: Leonardo Montanez M.D Primary Care Provider: Jose Francisco Gandhi MD Chief Complaint: Hypotension History of Present Illness Trevor Betancourt is a 56 year old male with PMH of atrial fibrillation with ablation procedure done in 2016, who sees Dr Shin in the office, presented today for BRENDON/Cardioversion as he has been staying in atrial flutter and heart rate has very high. He was successfully cardioverted back to Normal sinus rhythm with 1 shock of 200J. Post cardioversion, he developed hypotension and felt lightheaded. Anesthesia team evaluated him. Given persistent hypotension he was given IV fluids,atropine which improved heart rate from 50s to 60s. Also was given levophed bolus in the recovery area but given persistent hypotension, he was admitted to ICU for observation and initiation of levophed. Also he is hypoxic. His transesophageal echocardiogram showed moderately reduced LV systolic function. No LA appendage thrombus was seen Review of Systems Narrative: CONSTITUTIONAL: No fever chills weight loss or gain or night sweats. 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 [] MUSCULOSKELETAL: No knee or joint pain or rashes. [] Medications/Allergies Home Medications Medication Instructions Recorded Confirmed Last Taken Type ascorbate calcium (vitamin C) 500 500 mg PO DAILY 05/26/19 05/26/22 05/25/22 History mg tablet Carditone 1 tab PO DAILY 10/10/20 05/26/22 05/25/22 History multivitamin 1 tab PO DAILY 10/10/20 05/26/22 05/25/22 History cholecalciferol (vitamin D3) 25 25 mcg PO DAILY 11/20/21 05/26/22 05/25/22 History mcg (1,000 unit) capsule magnesium oxide 400 mg PO DAILY 11/20/21 05/26/22 05/25/22 History levothyroxine 75 mcg tablet See Rx Instructions .Route 02/19/22 05/26/22 05/26/22 Rx .COMPLEX #90 tabs testosterone cypionate 200 mg/mL 200 mg IM .EVERY 10 DAYS see 11/02/1505/26/22 05/25/22 Rx intramuscular oil pharmacy comments-pt states not taken for 3-4 weeks #3 mL niacin 1,000 mg tablet,extended 1,000 mg PO DAILY #90 tabs 05/15/22 05/26/22 05/25/22 Rx release rivaroxaban 20 mg tablet (Xarelto) 20 mg PO DAILY 05/22/22 05/26/22 05/26/22 History zinc 1 cap PO DAILY PRN Cold Symptoms 05/22/22 05/26/22 05/25/22 History sotalol 80 mg tablet 40 mg PO BID #60 tabs 05/26/22 05/26/22 05/26/22 Rx Allergies Allergy/AdvReac Type Severity Reaction Status Date / Time ibuprofen Allergy Severe Unknown Verified 05/26/22 10:20 PFSH Acute PFSH: Medical History Atrial fibrillation Dyslipidemia History of coronary angiogram Hypothyroidism Obesity (BMI 30.0-34.9) TRACY (obstructive sleep apnea) Surgical History H/O cardiac radiofrequency ablation S/P hernia repair Family History Grandmother CAD (coronary artery disease) MATERNAL Diabetes Mother Parkinson disease Grandfather CAD (coronary artery disease) MATERNAL S/P CABG (coronary artery bypass graft) Social History Smoking and tobacco status: never smoked Alcohol intake: current Alcohol intake frequency: few times a month Alcohol type: beer Household members: spouse Marital status: service: No Current occupational status: employed Current gender identity: Male Jcaki/Sikhism: Taoism Vitals/I&O/Wt Last Vital Signs Temp 96.2 F L 05/26/22 13:55 Pulse 64 05/26/22 14:25 Resp 17 05/26/22 13:55 BP 78/58 05/26/22 14:25 Pulse Ox 89 L 05/26/22 14:25 O2 Del Method 05/26/22 13:55 O2 Flow Rate 5 05/26/22 13:46 05/25/22 05/26/22 05/26/22 22:59 06:59 14:59 Intake Total 1000 / 1000 Balance 1000 / 1000 Physical Exam Narrative: GENERAL: Patient is alert, awake and oriented x3. [] NECK: No jugular vein distension. [] HEENT: No cyanosis. No icterus. No pallor. [] HEART: Regular S1 and S2. No murmur, rub or gallop. [] LUNGS: Diminished breath sounds ABDOMEN: Soft CENTRAL NERVOUS SYSTEM:Non focal EXTREMITIES: Lower extremities with no edema A&P Assessment and plan (1) CHF (congestive heart failure), NYHA class II: Qualifiers: Congestive heart failure type: combined Congestive heart failure chronicity: chronic Qualified Code(s): I50.42 - Chronic combined systolic (congestive) and diastolic (congestive) heart failure (2) Atrial flutter, paroxysmal: (3) Atrial fibrillation: Qualifiers: Atrial fibrillation type: unspecified chronic Qualified Code(s): I48.20 - Chronic atrial fibrillation, unspecified (4) Dyslipidemia: (5) Hypotension: Plan Patient had presented for outpatient BRENDON cardioversion for atrial flutter with rapid ventricular rate. BRENDON showed to moderately reduced LV systolic function that was unchanged from before. He was successfully cardioverted back to normal sinus rhythm with single 200 J shock. Post cardioversion his blood pressure has been low. Likely this is secondary to decrease in cardiac output from lowering heart rate. Obtain chest x-ray We will continue Levophed drip. Maintain MAP above 65. We will check labs. Continue anticoagulation with Xarelto. A bedside echocardiogram revealed moderately reduced LV systolic function. Attestations Medical Necessity Statement*: Care not expected to cross 2 midnights. Patient developed hypotension post cardioversion. This is secondary likely to decreased heart rate and decreased cardiac output. Patient requiring pressor support for maintaining blood pressure. Coding Level of Care Code Acute Code for [facility] Fwd Diagnoses CHF (congestive heart failure), NYHA class II I50.42 Congestive heart failure type: combined Congestive heart failure chronicity: chronic Atrial flutter, paroxysmal I48.92 Atrial fibrillation I48.20 Atrial fibrillation type: unspecified chronic Dyslipidemia E78.5 Hypotension I95.9
[2022-05-26] MEDS: ondansetron 2 mg/ML SDV 2 mL 4 MG IVP ×2 (15:43→23:00)
--- NOTE | 2022-05-26 16:27 | PM.CONSULT ---
Providers/Reason For Consult Consulting Physician/Specialty*: Leonardo Montanez M.D, cardiology Reason for Consult*: Acute hypoxia Attending Physician: Leonardo Montanez M.D Primary Care Provider: Jose Francisco Gandhi MD History of Present Illness History of Present Illness 55 yo with history of hypertension, dyslipidemia and previous history of paroxysmal A. fib x 25 years s/p a. fib ablation x 1 in Feb 2014, was admitted by cardiology for elective BRENDON cardioversion for symptomatic atrial fibrillation/ flutter management, Post BRENDON cardioversion, patient was hypotensive, and was also requiring 6 L oxygen through nasal cannula, do not use oxygen at home, also requiring Levophed as well as dobutamine later.Medicine was consulted for management of acute hypoxia, when I interacted with the patient he was complaining of, dry heaves, as well as little bit of cough, he was also complaining of getting short of breath at home prior to the admission, likely due to his A. fib. He denies any fevers chest pain, abdominal pain, urinary complaints. X-ray chest has shown: No acute findings. His other labs and vitals have been reviewed Review of Systems General: Reports: 10 or more systems reviewed and unremarkable except in HPI and below Const: Denies: fever(s), chills, body aches, change in appetite or diaphoresis Card: Reports: dyspnea on exertion; Denies: palpitations, edema, swelling of feet/ankles, orthopnea or leg pain with exertion Resp: Reports: dyspnea; Denies: wheezing or pain on inspiration GI: Denies: abdominal pain, nausea, vomiting, diarrhea or constipation : Denies: flank pain or difficulty urinating Musc: Denies: back pain, extremity pain or extremity swelling Neuro: Denies: headache(s), difficulty walking or confusion Medications/Allergies Home Medications Medication Instructions Recorded Confirmed Last Taken Type ascorbate calcium (vitamin C) 500 500 mg PO DAILY 05/26/19 05/26/22 05/25/22 History mg tablet Carditone 1 tab PO DAILY 10/10/20 05/26/22 05/25/22 History multivitamin 1 tab PO DAILY 10/10/20 05/26/22 05/25/22 History cholecalciferol (vitamin D3) 25 25 mcg PO DAILY 11/20/21 05/26/22 05/25/22 History mcg (1,000 unit) capsule magnesium oxide 400 mg PO DAILY 11/20/21 05/26/22 05/25/22 History levothyroxine 75 mcg tablet See Rx Instructions .Route 02/19/22 05/26/22 05/26/22 Rx .COMPLEX #90 tabs testosterone cypionate 200 mg/mL 200 mg IM .EVERY 10 DAYS see 03/06/22 05/26/22 05/25/22 Rx intramuscular oil pharmacy comments-pt states not taken for 3-4 weeks #3 mL niacin 1,000 mg tablet,extended 1,000 mg PO DAILY #90 tabs 05/15/22 05/26/22 05/25/22 Rx release rivaroxaban 20 mg tablet (Xarelto) 20 mg PO DAILY 05/22/22 05/26/22 05/26/22 History zinc 1 cap PO DAILY PRN Cold Symptoms 05/22/22 05/26/22 05/25/22 History sotalol 80 mg tablet 40 mg PO BID #60 tabs 05/26/22 05/26/22 05/26/22 Rx Allergies Allergy/AdvReac Type Severity Reaction Status Date / Time ibuprofen Allergy Severe Unknown Verified 05/26/22 10:20 Current Medications Generic Name Dose Route Start Last Admin Trade Name Freq PRN Reason Stop Dose Admin Norepinephrine Bitartrate 4 mg 254 mls @ 0 mls/hr 05/26/22 14:30 05/26/22 15:27 / Dextrose IV 2 mcg/min .Q0M GENOVEVA 7.62 mls/hr Administration Protocol Per Protocol Ondansetron HCl 4 mg 05/26/22 15:23 05/26/22 15:43 Ondansetron 2 Mg/Ml Sdv 2 Ml IVP 4 mg Q4H PRN Administration NAUSEA AND VOMITING PFSH Acute PFSH: Medical History Atrial fibrillation Dyslipidemia History of coronary angiogram Hypothyroidism Obesity (BMI 30.0-34.9) TRACY (obstructive sleep apnea) Surgical History H/O cardiac radiofrequency ablation S/P hernia repair Family History Grandmother CAD (coronary artery disease) MATERNAL Diabetes Mother Parkinson disease Grandfather CAD (coronary artery disease) MATERNAL S/P CABG (coronary artery bypass graft) Social History Smoking and tobacco status: never smoked Alcohol intake: current Alcohol intake frequency: few times a month Alcohol type: beer Household members: spouse Marital status: service: No Current occupational status: employed Current gender identity: Male Jacki/Religious: Catholic Vitals/I&O/Wt Last Vital Signs Temp 96.2 F L 05/26/22 13:55 Pulse 65 05/26/22 14:54 Resp 17 05/26/22 13:55 BP 78/58 05/26/22 14:25 Pulse Ox 94 05/26/22 14:54 O2 Del Method 05/26/22 14:54 O2 Flow Rate 6 05/26/22 14:54 05/26/22 05/26/22 05/26/22 06:59 14:59 22:59 Intake Total 1000 / 1000 Balance 1000 / 1000 Physical Exam HENMT: COMMON NORMALS: normocephalic and atraumatic HEAD & SCALP: normocephalic and atraumatic Resp: COMMON NORMALS: normal respiratory effort, No retractions, No use of accessory muscles and clear to auscultation bilaterally EFFORT & INSPECTION: Yes symmetric chest movement AUSCULTATION: clear to auscultation bilaterally OTHER: Minimal right basal crackles present Cardio: COMMON NORMALS: regular rate, regular rhythm, S1 normal heart sound present, S2 normal heart sound present, No gallops present (Cardio), No murmurs present (Cardio), No rub (Cardio) and Peripheral pulses 2+ throughout RATE: regular rate RHYTHM: regular rhythm HEART SOUNDS: S1 normal heart sound present and S2 normal heart sound present PERIPHERAL PULSES: Peripheral pulses 2+ throughout GI: COMMON NORMALS: Normal to inspection, nondistended, normoactive bowel sounds present, Soft to palpation, non-tender, No hepatosplenomegaly present and no masses AUSCULTATION: Yes normoactive bowel sounds PALPATION: Yes Soft to palpation and Yes No hepatosplenomegaly present RECTAL EXAM: Yes deferred Extremity: COMMON NORMALS: no clubbing, cyanosis or edema and no pedal edema Data 05/26/22 16:13 05/26/22 16:13 A&P Assessment and plan (1) Hypotension: (2) CHF (congestive heart failure), NYHA class II: Qualifiers: Congestive heart failure chronicity: chronic Congestive heart failure type: combined Qualified Code(s): I50.42 - Chronic combined systolic (congestive) and diastolic (congestive) heart failure (3) Obesity (BMI 30.0-34.9): (4) Hypothyroidism: (5) Atrial flutter, paroxysmal: (6) TRACY (obstructive sleep apnea): (7) Hypoxia: Plan 55 yo with history of hypertension, dyslipidemia and previous history of paroxysmal A. fib x 25 years s/p a. fib ablation x 1 in Feb 2014, was admitted by cardiology for elective BRENDON cardioversion for symptomatic atrial fibrillation/ flutter management, Post BRENDON cardioversion, patient was hypotensive, and was also requiring 6 L oxygen through nasal cannula, do not use oxygen at home, also requiring Levophed as well as dobutamine later.Medicine was consulted for management of acute hypoxia. Acute hypoxia: X-ray chest has not shown any acute finding D-dimer: 2.50 Follow VQ scan Follow lower extremity Doppler vein Patient is currently on therapeutic anticoagulation with Xarelto for history of A. fib. Continue with the same for now Supplemental oxygen as needed, target SPO2 of 95 Hypotension:Post BRENDON cardioversion, Lactic acid is :2.9 Follow repeat lactic acid Continue gentle IV hydration with normal saline Currently on dobutamine as well as Levophed> maintain MAP greater than 65 History of atrial fibrillation: S/p BRENDON cardioversion Has been on propafenone as well as flecainide. He was switched to sotalol as outpatient after echo showed moderately reduced LVEF. History of hypothyroidism: Continue levothyroxine VALERIE on CKD Currently serum creatinine is: 1.6 Baseline serum creatinine unknown Continue gentle IV hydration with normal saline Monitor intake output charting Avoid nephrotoxic CODE STATUS: Full code DVT Prophylaxis not needed on Xarelto Consult Attestations Medical Necessity Statement: Per primary team Coding Level of Care Code Acute Code for [facility] Fwd Exam Detailed Diagnoses Hypotension I95.9 CHF (congestive heart failure), NYHA class II I50.42 Congestive heart failure chronicity: chronic Congestive heart failure type: combined Obesity (BMI 30.0-34.9) E66.9 Hypothyroidism E03.9 Atrial flutter, paroxysmal I48.92 TRACY (obstructive sleep apnea) G47.33 Hypoxia R09.02
[2022-05-26 16:31] LABS: Basophils # 0.1 10^3/uL (0.0-0.1); Basophils % 0.8 %; Eosinophils # 0.1 10^3/uL (0.0-0.8); Eosinophils % 0.6 %; Hematocrit 52.6 % (42.0-52.0); Hemoglobin 16.5 g/dL (11.7-16.6); Lymphocytes % 23.5 %; Mean Corpuscular HGB Conc 31.4 g/dL (30.0-36.0); Mean Corpuscular Hemoglobin 29.3 pg (28.0-34.0); Mean Corpuscular Volume 93.3 fl (80-94); Mean Platelet Volume 9.5 fL (7.4-10.4); Monocytes # 0.7 10^3/uL (0.2-0.9); Neutrophils # 5.73 10^3/uL (1.8-7.7); Neutrophils % 66.5 %; Nucleated Red Blood Cells % 0 %; Platelet Count 230 10^3/cmm (130-400); Red Blood Count 5.64 10^6/uL (4.1-5.3); Red Cell Distribution Width 13.5 % (12.1-15.1); White Blood Count 8.6 10^3/uL (4.0-10.0)
[2022-05-26] MEDS: DOBUTamine drip 500 MG/250 ML PREMIX IV (16:49)
[2022-05-26] MEDS: levothyroxine 75 mcg Tablet PO (16:53)
[2022-05-26 16:55] LABS: Alkaline Phosphatase 53 U/L (40-130); Blood Urea Nitrogen 20 mg/dL (6-20); Carbon Dioxide 18 mmol/L (22-29); Chloride 103 mmol/L (98-107); Globulin 2.8 g/dL (1.3-4.6); Glomerular Filtration Rate 44.6 mL/min (90-130); Glucose 125 mg/dL (65-115); Lactic Sepsis W/Reflex 2.9 mmol/L (0.5-2.2); Osmolality Calculated 282 mOsm/kg (285-295); Sodium 134 mmol/L (136-145); Total Bilirubin 1.5 mg/dL (0.15-1.2); Total Protein 6.8 g/dL (6.6-8.7)
[2022-05-26 16:57] LABS: Alanine Aminotransferase 41 U/L (0-41); Anion Gap 18.1 (5-19); Aspartate Amino Transferase 40 U/L (0-40); Potassium 5.1 mmol/L (3.5-5.1)
[2022-05-26 17:02] LABS: NT Pro B Type Natriuretic Pept 1310 pg/mL (0-125)
[2022-05-26 17:09] LABS: ABG PCO2 36.3 mmHg (35-45); ABG PH Result 7.36 (7.35-7.45); Alveolar-Arterial Oxygen Gradi 27.8 mmHg (5-10); Arterial Blood Gas Hematocrit 53.4 % (42-52); Base Excess ABG -4.1 mmol/L (-2.0-2.0); Blood Gas Allen Test Pos; Blood Gas Operator Identificat GD; Blood Gas Sample Site Radial, left; Blood Gas Sample Type Arterial; Carboxyhemoglobin 1.3 %THgb (0.4-20.1); HCO3 ABG 20.6 mmol/L (22-26); HGB O2 Sat 87.8 % (95-100); Ionized Calcium Level - ABG 1.2 mmol/L (1.1-1.4); Methemoglobin 0.5 % (0.4-1.5); Oxygen Device NC; Oxygen Saturation ABG 89.5; PO2 ABG 57.4 mmHg (80.0-100.0); Potassium Level - ABG 5.7 mmol/L (3.5-5.0); Total Hemoglobin 17.4 g/dL (14-18)
[2022-05-26 18:16] LABS: Reflex Lactate Order REFLEX LACTIC ORDERD
[2022-05-26 19:44] LABS: Lactic Acid level (Lactate) 2.7 mmol/L (0.5-2.2)
[2022-05-26] MEDS: metoclopramide 5 mg/mL SDV 2 mL IVP (20:05)
[2022-05-26] MEDS: sodium chloride 0.9% 1,000 ML 75 ML IV (22:51)
[2022-05-27] VITALS (46 sets, daily range): BP systolic 90–145; BP diastolic 61–103; PULSE 61–70; RESP 6–22; TEMP 36.8–37; O2SAT 86–95; BMI 34.4
[2022-05-27 03:09] LABS: Basophils % 0.3 %; Hematocrit 45.8 % (42.0-52.0); Lymphocytes # 1.6 10^3/uL (0.8-4.8); Lymphocytes % 13.4 %; Mean Corpuscular HGB Conc 32.8 g/dL (30.0-36.0); Mean Corpuscular Hemoglobin 29.5 pg (28.0-34.0); Mean Corpuscular Volume 90.2 fl (80-94); Mean Platelet Volume 9.8 fL (7.4-10.4); Monocytes # 0.9 10^3/uL (0.2-0.9); Monocytes % 7.7 %; Neutrophils # 9.32 10^3/uL (1.8-7.7); Neutrophils % 78.3 %; Nucleated Red Blood Cells % 0 %; Platelet Count 233 10^3/cmm (130-400); Red Blood Count 5.08 10^6/uL (4.1-5.3); Red Cell Distribution Width 13.5 % (12.1-15.1); White Blood Count 11.9 10^3/uL (4.0-10.0)
[2022-05-27 03:21] LABS: Alanine Aminotransferase 112 U/L (0-41); Albumin Level 4.1 g/dL (3.5-5.2); Alkaline Phosphatase 50 U/L (40-130); Anion Gap 16.3 (5-19); Aspartate Amino Transferase 76 U/L (0-40); Blood Urea Nitrogen 27 mg/dL (6-20); Calcium 8.7 mg/dL (8.5-10.5); Carbon Dioxide 23 mmol/L (22-29); Chloride 102 mmol/L (98-107); Globulin 2.7 g/dL (1.3-4.6); Glomerular Filtration Rate 30.9 mL/min (90-130); Glucose 118 mg/dL (65-115); Osmolality Calculated 288 mOsm/kg (285-295); Potassium 5.3 mmol/L (3.5-5.1); Sodium 136 mmol/L (136-145); Total Bilirubin 0.8 mg/dL (0.15-1.2); Total Protein 6.8 g/dL (6.6-8.7)
--- NOTE | 2022-05-27 05:00 | NM_ITS ---
WS: [id number] NUCLEAR MEDICINE VENTILATION/PERFUSION LUNG SCAN HISTORY: hypoxic COMPARISON: Radiograph 05/26/2022 TECHNIQUE: Ventilation: 32.5 mCi of Technetium 99 DTPA aerosol inhaled. Perfusion: 5.4 mCi of technetium 99m MAA IV. Minimal deposition of radionuclide centrally. Otherwise normal ventilation bilaterally. No wedge-shap ed defects on the perfusion scan. Normal appearance of perfusion. No lobar collapse. NM/NM pul vent and perfus* [id number] IMPRESSION: Normal VQ scan.
[2022-05-27 08:07] LABS: Lactate (Lactic Acid level) 1.3 mmol/L (0.5-2.2)
--- NOTE | 2022-05-27 08:17 | USCV_ITS ---
Trevor Betancourt Age: 56 Gender: M : 1965 Exam Date: 05/27/2022 12:53 Ordering Phys: Milton Leroy MD Technologist: Armando Haney Exam Location: [facility] [place]_ Indication: R/O DVT HISTORY: bed stasis PROCEDURES: The venous duplex Doppler examination of both lower extremities was performed in the standard fashion. The following venous structures were evaluated: common femoral vein, profunda vein, proximal portion of the greater saphenous vein, superficial femoral vein, and the popliteal vein. In addition, the posterior tibial and peroneal trunk were evaluated. FINDINGS: Normal 2-D Doppler and augmentation and compressibility throughout the lower extremity venous structures. Additional imaging through the proximal calf veins also reveals no thrombus. Limited evaluation of the greater saphenous vein is patent with no thrombus. CONCLUSIONS No DVT bilateral lower extremities. Dr. Citlaly Urias DO (Electronically Signed) Final Date: 27 May 2022 14:15 S
[2022-05-27] MEDS: rivaroxaban 10 mg Tablet 20 MG PO (09:17)
[2022-05-27] MEDS: ascorbic acid 500 mg Tablet PO (09:18)
[2022-05-27] MEDS: magnesium oxide 400 mg tablet PO (09:18)
[2022-05-27] MEDS: niacin ER (24 hr) 500 mg Capsule 1000 MG PO (09:18)
--- NOTE | 2022-05-27 09:21 | PM.PN ---
Subjective Subjective: Patient went into cardiogenic shock post cardioversion yesterday. Since starting on dobutamine gtt, blood pressure improved. He is feeling better. No chest pain or shortness of breath. Stays in normal sinus rhythm. Vitals/I&O/Wt Last Vital Signs Temp 98.2 F 05/27/22 09:00 Pulse 67 05/27/22 09:00 Resp 17 05/27/22 09:00 BP 108/76 05/27/22 09:00 Pulse Ox 92 05/27/22 09:00 O2 Del Method 05/27/22 09:00 O2 Flow Rate 2 05/27/22 09:00 05/26/22 05/27/22 05/27/22 22:59 06:59 14:59 Intake Total 282.291 / 1282.291 250 / 1532.291 500 / 500 Output Total 500 / 500 Balance -217.709 / 782.291 250 / 1032.291 500 / 500 Weight last 48 hrs Weight 240 lb Physical Exam Narrative: GENERAL: Patient is alert, awake and oriented x3. [] NECK: No jugular vein distension. [] HEENT: No cyanosis. No icterus. No pallor. [] HEART: Regular S1 and S2. No murmur, rub or gallop. [] LUNGS: Diminished breath sounds ABDOMEN: Soft CENTRAL NERVOUS SYSTEM:Non focal EXTREMITIES: Lower extremities with no edema Data 05/27/22 02:21 05/27/22 02:21 A&P Assessment and plan (1) Cardiogenic shock: (2) CHF (congestive heart failure), NYHA class II: Qualifiers: Congestive heart failure type: combined Congestive heart failure chronicity: chronic Qualified Code(s): I50.42 - Chronic combined systolic (congestive) and diastolic (congestive) heart failure (3) Atrial flutter, paroxysmal: (4) Atrial fibrillation: Qualifiers: Atrial fibrillation type: unspecified chronic Qualified Code(s): I48.20 - Chronic atrial fibrillation, unspecified (5) Dyslipidemia: (6) Hypotension: (7) VALERIE (acute kidney injury): Plan Patient had presented for outpatient BRENDON cardioversion for atrial flutter with rapid ventricular rate. BRENDON showed to moderately reduced LV systolic function that was unchanged from before. He was successfully cardioverted back to normal sinus rhythm with single 200 J shock. Post cardioversion patient went into cardiogenic shock likely secondary to low cardiac output with reduced heart rate. We started dobutamine yesterday and blood pressure has stabilized. We will titrate it off later today. Lactate has normalized. VALERIE was secondary to hypotension and ATN. Improving now. Continue IV fluids. Continue anticoagulation with Xarelto. A bedside echocardiogram revealed moderately reduced LV systolic function. If labs normalize by tomorrow and able to wean off dobutamine, likely discharge home in the AM. Attestations Medical Necessity Statement*: Care expected to cross 2 midnights. Coding Level of Care Code Acute Code for [facility] Fwd Diagnoses Cardiogenic shock R57.0 CHF (congestive heart failure), NYHA class II I50.42 Congestive heart failure type: combined Congestive heart failure chronicity: chronic Atrial flutter, paroxysmal I48.92 Atrial fibrillation I48.20 Atrial fibrillation type: unspecified chronic Dyslipidemia E78.5 Hypotension I95.9 VALERIE (acute kidney injury) N17.9
[2022-05-27] MEDS: levothyroxine 75 mcg Tablet PO (09:36)
--- NOTE | 2022-05-27 10:48 | PC.CHAP ---
Pastoral Care Encounter/Spiritual Assessment Type of Contact [] Declined international account manager visit [] Patient/Family/Request visit [] Outpatient visit [] Follow-up visit [] Physician referral [] Code/Alert [x] Routine visit [] Staff referral [] Actively dying [] Patient sleeping [x] Family support [] [] Out of room [] Palliative care [] [] Receiving care in room [] Pre-surgical visit [] Trauma [] Long length of stay [x] ICU visit [x] Other: setting up in chair... feeling so much better Relational/Emotional Strength [] Patient feels connected with others/family/visitors/staff [] Distress [] Loneliness/isolation [] Abandonment Spirituality of Patient [] Person of Jacki [] Attends Moravian of their Jacki [] Believes in Prayer [] Reads Bible or Latter Day materials [] There are Spiritual issues to be addressed Soft Water Mechanic Interventions [x] Prayer [] Active listening [] Non-anxious presence [] Spiritual/emotional support [] Crisis/trauma care [] Spiritual counseling [] Bereavement support [] Provided bereavement packet [] Provided Bible/devotional materials [] Provided toy/stuffed animal, coloring book to patient or family member [] Provided Communion [] Anointing/Marfa [] Salvation [x] Completed spiritual assessment [] Other: Impact on Illness or Injury [] Angry [] Fearful [] Anxious [] Often cries [] Exhaustion [] Unable to work [] Unable to attend restorationist [] Unable to walk/stand [] Unable to read [] Unable to drive [] Unable to eat/drink [] Unable to sleep [] Unable to be with family [] Patient intubated [] Other: Summary Time spent with patient
[2022-05-27 14:23] LABS: Anion Gap 14.4 (5-19); Blood Urea Nitrogen 29 mg/dL (6-20); Calcium 8.7 mg/dL (8.5-10.5); Carbon Dioxide 25 mmol/L (22-29); Chloride 98 mmol/L (98-107); Glomerular Filtration Rate 36.6 mL/min (90-130); Glucose 106 mg/dL (65-115); Osmolality Calculated 282 mOsm/kg (285-295); Potassium 4.4 mmol/L (3.5-5.1); Sodium 133 mmol/L (136-145)
--- NOTE | 2022-05-27 15:11 | P.PN_ITS ---
Subjective Subjective: Patient was seen and examined this morning, currently in sinus rhythm, denied any shortness of breath cough chest pain.Supplemental oxygen requirement is coming down. Medications: Medication Review Details: Generic Name Dose Route Start Last Admin Trade Name Teena PRN Reason Stop Dose Admin Ascorbic Acid 500 mg 05/27/22 09:00 05/27/22 09:18 Ascorbic Acid 50 0 Mg Tablet PO 500 mg DAILY GENOVEVA Administration Norepinephrine Bit artrate 4 mg 254 mls @ 0 mls/h r 05/26/22 14:30 05/26/22 21:00 / Dextrose IV 0 mcg/min .Q0M GENOVEVA 0 mls/hr Titration Protocol Per Protocol Sodium Chloride 1,000 mls @ 75 ml s/hr 05/26/22 14:15 05/26/22 22:51 Sodium Chloride 0.9% IV 75 mls/hr .[id number] GENOVEVA Administration Dobutamine HCl/Dex trose 500 mg in 250 mls @ 0.816 mls/hr 05/26/22 16:45 05/26/22 16:49 Dobutamine Drip IV 0.25 mcg/kg/min .Q24H GENOVEVA 0.82 mls/hr Administration 0.25 MCG/KG/MIN Levothyroxine Sodi um 75 mcg 05/26/22 16:45 05/27/22 09:36 Levothyroxine 75 Mcg Tablet PO 75 mcg QAM GENOVEVA Administration Magnesium Oxide 400 mg 05/27/22 09:00 05/27/22 09:18 Magnesium Oxide 400 Mg Tablet PO 400 mg DAILY GENOVEVA Administration Multivitamins Ther apeutic 1 tab 05/27/22 09:00 05/27/22 09:19 Multivitamin The rapeutic Tablet PO Not Given DAILY GENOVEVA Niacin 1,000 mg 05/27/22 09:00 05/27/22 09:18 Niacin Er (24 Hr ) 500 Mg Capsule PO 1,000 mg DAILY GENOVEVA Administration Ondansetron HCl 4 mg 05/26/22 15:23 05/26/22 23:00 Ondansetron 2 Mg /Ml Sdv 2 Ml IVP 4 mg Q4H PRN Administration NAUSEA AND VOMITI NG Rivaroxaban 20 mg 05/27/22 09:00 05/27/22 09:17 Rivaroxaban 10 M g Tablet PO 20 mg DAILY GENOVEVA Administration Vitals/I&O/Wt Last Vital Signs Temp 98.2 F 05/27/22 09:00 Pulse 62 05/27/22 14:30 Resp 21 H 05/27/22 14:30 BP 126/92 05/27/22 14:30 Pulse Ox 90 05/27/22 14:30 O2 Del Method 05/27/22 09:00 O2 Flow Rate 2 05/27/22 09:00 05/27/22 05/27/22 05/27/22 06:59 14:59 22:59 Intake Total 250 / 1532.291 500 / 500 Balance 250 / 1032.291 500 / 500 Weight last 48 hrs Weight 108.862 kg Physical Exam HENMT: COMMON NORMALS: normocephalic and atraumatic HEAD & SCALP: normocephalic and atraumatic Resp: COMMON NORMALS: normal respiratory effort, No retractions, No use of accessory muscles and clear to auscultation bilaterally EFFORT & INSPECTION: Yes symmetric chest movement AUSCULTATION: clear to auscultation bilaterally OTHER: Minimal right basal crackles present Cardio: COMMON NORMALS: regular rate, regular rhythm, S1 normal heart sound present, S2 normal heart sound present, No gallops present (Cardio), No murmurs present (Cardio), No rub (Cardio) and Peripheral pulses 2+ throughout RATE: regular rate RHYTHM: regular rhythm HEART SOUNDS: S1 normal heart sound present and S2 normal heart sound present PERIPHERAL PULSES: Peripheral pulses 2+ throughout GI: COMMON NORMALS: Normal to inspection, nondistended, normoactive bowel sounds present, Soft to palpation, non-tender, No hepatosplenomegaly present and no masses AUSCULTATION: Yes normoactive bowel sounds PALPATION: Yes Soft to palpation and Yes No hepatosplenomegaly present RECTAL EXAM: Yes deferred Extremity: COMMON NORMALS: no clubbing, cyanosis or edema and no pedal edema Data 05/27/22 02:21 05/27/22 13:55 A&P Assessment and plan (1) Hypotension: (2) CHF (congestive heart failure), NYHA class II: Qualifiers: Congestive heart failure type: combined Congestive heart failure chronicity: chronic Qualified Code(s): I50.42 - Chronic combined systolic (c ongestive) and diastolic (congestive) heart failure (3) Obesity (BMI 30.0-34.9): (4) Hypothyroidism: (5) Atrial flutter, paroxysmal: (6) TRACY (obstructive sleep apnea): (7) Hypoxia: Plan 55 yo with history of hypertension, dyslipidemia and previous history of paroxysmal A. fib x 25 years s/p a. fib ablation x 1 in Feb 2014, was admitted by cardiology for elective BRENDON cardioversion for symptomatic atrial fibrillation/ flutter management, Post BRENDON cardioversion, patient was hypotensive, and was also requiring 6 L oxygen through nasal cannula, do not use oxygen at home, also requiring Levophed as well as dobutamine later.Medicine was consulted for management of acute hypoxia. Acute hypoxia: X-ray chest has not shown any acute finding D-dimer: 2.50 VQ scan: Normal lower extremity Doppler vein: Negative for DVT Patient is currently on therapeutic anticoagulation with Xarelto for history of A. fib. Supplemental oxygen as needed, target SPO2 of 95 Hypotension:Post BRENDON cardioversion, Lactic acid is :2.9 Repeat lactic acid: Normal Continue gentle IV hydration with normal saline Currently on dobutamine as well as Levophed> maintain MAP greater than 65 History of atrial fibrillation: S/p BRENDON cardioversion Has been on propafenone as well as flecainide. He was switched to sotalol as outpatient after echo showed moderately reduced LVEF. History of hypothyroidism: Continue levothyroxine VALERIE on CKD Currently serum creatinine is: 1.6 Baseline serum creatinine unknown Continue gentle IV hydration with normal saline Monitor intake output charting Avoid nephrotoxic CODE STATUS: Full code DVT Prophylaxis not needed on Xarelto Attestations Medical Necessity Statement*: Per primary Coding Level of Care Code Acute Code for Chg Fwd Diagnoses Hypotension I95.9 CHF (congestive heart failure), NYHA class II I50.42 Congestive heart failure type: combined Congestive heart failure chronicity: chronic Obesity (BMI 30.0-34.9) E66.9 Hypothyroidism E03.9 Atrial flutter, paroxysmal I48.92 TRACY (obstructive sleep apnea) G47.33 Hypoxia R09.02
[2022-05-27] MEDS: sodium chloride 0.9% 1,000 ML 75 ML IV (18:56)
[2022-05-28] VITALS (23 sets, daily range): BP systolic 109–145; BP diastolic 71–95; PULSE 65–72; RESP 6–24; TEMP 37.3; O2SAT 89–93; BMI 34.4
--- NOTE | 2022-05-28 06:25 | PC.NURSE ---
Patient has tolerated well without supplemental oxygen while awake. 2L were applied while he was sleeping as sats dropped into upper 80s. Patient normally wears CPAP at home. No nausea and urine output has been better during this shift.
--- NOTE | 2022-05-28 08:25 | PM.PN ---
Subjective Subjective: Patient was seen and examined this morning, currently in sinus rhythm, denied any shortness of breath cough chest pain.Supplemental oxygen requirement is coming down. Medications: Medication Review Details: Generic Name Dose Route Start Last Admin Trade Name Teena PRN Reason Stop Dose Admin Ascorbic Acid 500 mg 05/27/22 09:00 05/27/22 09:18 Ascorbic Acid 50 0 Mg Tablet PO 500 mg DAILY GENOVEVA Administration Norepinephrine Bit artrate 4 mg 254 mls @ 0 mls/h r 05/26/22 14:30 05/26/22 21:00 / Dextrose IV 0 mcg/min .Q0M GENOVEVA 0 mls/hr Titration Protocol Per Protocol Sodium Chloride 1,000 mls @ 75 ml s/hr 05/26/22 14:15 05/27/22 18:56 Sodium Chloride 0.9% IV 75 mls/hr .[id number] GENOVEVA Administration Dobutamine HCl/Dex trose 500 mg in 250 mls @ 0.816 mls/hr 05/26/22 16:45 05/27/22 19:00 Dobutamine Drip IV 0 mcg/kg/min .Q24H GENOVEVA 0 mls/hr Infusion 0.25 MCG/KG/MIN Levothyroxine Sodi um 75 mcg 05/26/22 16:45 05/27/22 09:36 Levothyroxine 75 Mcg Tablet PO 75 mcg QAM GENOVEVA Administration Magnesium Oxide 400 mg 05/27/22 09:00 05/27/22 09:18 Magnesium Oxide 400 Mg Tablet PO 400 mg DAILY GENOVEVA Administration Multivitamins Ther apeutic 1 tab 05/27/22 09:00 05/27/22 09:19 Multivitamin The rapeutic Tablet PO Not Given DAILY GENOVEVA Niacin 1,000 mg 05/27/22 09:00 05/27/22 09:18 Niacin Er (24 Hr ) 500 Mg Capsule PO 1,000 mg DAILY GENOVEVA Administration Ondansetron HCl 4 mg 05/26/22 15:23 05/26/22 23:00 Ondansetron 2 Mg /Ml Sdv 2 Ml IVP 4 mg Q4H PRN Administration NAUSEA AND VOMITI NG Rivaroxaban 20 mg 05/27/22 09:00 05/27/22 09:17 Rivaroxaban 10 M g Tablet PO 20 mg DAILY GENOVEVA Administration Vitals/I&O/Wt Last Vital Signs Temp 98.5 F 05/27/22 19:04 Pulse 65 05/28/22 06:00 Resp 20 H 05/28/22 06:00 BP 138/81 05/28/22 06:00 Pulse Ox 93 05/28/22 06:00 O2 Del Method 05/27/22 20:00 O2 Flow Rate 2 05/27/22 09:00 05/27/22 05/28/22 05/28/22 22:59 06:59 14:59 Intake Total 2261.47 / 3761.47 240 / 4001.47 Output Total 750 / 750 Balance 1511.47 / 3011.47 240 / 3251.47 Weight last 48 hrs Weight 108.862 kg Weight 108.862 kg Physical Exam HENMT: COMMON NORMALS: normocephalic and atraumatic HEAD & SCALP: normocephalic and atraumatic Resp: COMMON NORMALS: normal respiratory effort, No retractions, No use of accessory muscles and clear to auscultation bilaterally EFFORT & INSPECTION: Yes symmetric chest movement AUSCULTATION: clear to auscultation bilaterally OTHER: Minimal right basal crackles present Cardio: COMMON NORMALS: regular rate, regular rhythm, S1 normal heart sound present, S2 normal heart sound present, No gallops present (Cardio), No murmurs present (Cardio), No rub (Cardio) and Peripheral pulses 2+ throughout RATE: regular rate RHYTHM: regular rhythm HEART SOUNDS: S1 normal heart sound present and S2 normal heart sound present PERIPHERAL PULSES: Peripheral pulses 2+ throughout GI: COMMON NORMALS: Normal to inspection, nondistended, normoactive bowel sounds present, Soft to palpation, non-tender, No hepatosplenomegaly present and no masses AUSCULTATION: Yes normoactive bowel sounds PALPATION: Yes Soft to palpation and Yes No hepatosplenomegaly present RECTAL EXAM: Yes deferred Extremity: COMMON NORMALS: no clubbing, cyanosis or edema and no pedal edema Data 05/27/22 02:21 05/27/22 13:55 A&P Assessment and plan (1) Hypotension: (2) CHF (congestive heart failure), NYHA class II: Qualifiers: Congestive heart failure chronicity: chronic Congestive heart failure type: combined Qualified Code(s): I50.42 - Chronic combined systolic (congestive) and diastolic (congestive) heart failure (3) Obesity (BMI 30.0-34.9): (4) Hypothyroidism: (5) Atrial flutter, paroxysmal: (6) TRACY (obstructive sleep apnea): (7) Hypoxia: Plan 55 yo with history of hypertension, dyslipidemia and previous history of paroxysmal A. fib x 25 years s/p a. fib ablation x 1 in Feb 2014, was admitted by cardiology for elective BRENDON cardioversion for symptomatic atrial fibrillation/ flutter management, Post BRENDON cardioversion, patient was hypotensive, and was also requiring 6 L oxygen through nasal cannula, do not use oxygen at home, also requiring Levophed as well as dobutamine later.Medicine was consulted for management of acute hypoxia. Acute hypoxia:Resolved: Possibly secondary to transient hypotension in the setting of: Post cardioversion cardiogenic shock. X-ray chest has not shown any acute finding D-dimer: 2.50 VQ scan: Normal lower extremity Doppler vein: Negative for DVT Patient is currently on therapeutic anticoagulation with Xarelto for history of A. fib. Hypotension:Post BRENDON cardioversion, Lactic acid is :2.9 : Elevated likely secondary to hypoperfusion secondary to hypotension Repeat lactic acid: Normal Continue gentle IV hydration with normal saline Currently on dobutamine as well as Levophed> maintain MAP greater than 65 History of atrial fibrillation: S/p BRENDON cardioversion Has been on propafenone as well as flecainide. He was switched to sotalol as outpatient after echo showed moderately reduced LVEF. History of hypothyroidism: Continue levothyroxine VALERIE on CKD: Serum creatinine was trending down at the time of discharge: It was 1.9: Patient will follow-up with repeat BMP as outpatient. Admission serum creatinine was: 1.6 Baseline serum creatinine unknown Was on gentle IV hydration with normal saline Monitor intake output charting Avoid nephrotoxic CODE STATUS: Full code DVT Prophylaxis not needed on Xarelto Attestations Medical Necessity Statement*: Patient is being discharged today. Coding Level of Care Code Acute Code for Chg Fwd Exam Detailed Diagnoses Hypotension I95.9 CHF (congestive heart failure), NYHA class II I50.42 Congestive heart failure chronicity: chronic Congestive heart failure type: combined Obesity (BMI 30.0-34.9) E66.9 Hypothyroidism E03.9 Atrial flutter, paroxysmal I48.92 TRACY (obstructive sleep apnea) G47.33 Hypoxia R09.02
[2022-05-28] MEDS: rivaroxaban 10 mg Tablet 20 MG PO (08:28)
[2022-05-28] MEDS: ascorbic acid 500 mg Tablet PO (08:29)
[2022-05-28] MEDS: multivitamin therapeutic Tablet 1 TAB PO (08:29)
[2022-05-28] MEDS: magnesium oxide 400 mg tablet PO (08:29)
[2022-05-28 09:02] LABS: Basophils # 0.1 10^3/uL (0.0-0.1); Basophils % 0.5 %; Eosinophils # 0.1 10^3/uL (0.0-0.8); Eosinophils % 0.7 %; Hematocrit 43.8 % (42.0-52.0); Hemoglobin 14.1 g/dL (11.7-16.6); Lymphocytes # 2.2 10^3/uL (0.8-4.8); Lymphocytes % 16.1 %; Mean Corpuscular HGB Conc 32.2 g/dL (30.0-36.0); Mean Corpuscular Hemoglobin 28.9 pg (28.0-34.0); Mean Corpuscular Volume 89.8 fl (80-94); Mean Platelet Volume 9.6 fL (7.4-10.4); Monocytes # 1.3 10^3/uL (0.2-0.9); Monocytes % 9.6 %; Neutrophils # 9.89 10^3/uL (1.8-7.7); Neutrophils % 72.8 %; Nucleated Red Blood Cells % 0 %; Platelet Count 178 10^3/cmm (130-400); Red Blood Count 4.88 10^6/uL (4.1-5.3); Red Cell Distribution Width 13.5 % (12.1-15.1); White Blood Count 13.6 10^3/uL (4.0-10.0)
[2022-05-28 09:21] LABS: Alanine Aminotransferase 111 U/L (0-41); Albumin Level 4.2 g/dL (3.5-5.2); Alkaline Phosphatase 52 U/L (40-130); Anion Gap 12.3 (5-19); Aspartate Amino Transferase 39 U/L (0-40); Blood Urea Nitrogen 21 mg/dL (6-20); Calcium 8.5 mg/dL (8.5-10.5); Carbon Dioxide 25 mmol/L (22-29); Chloride 101 mmol/L (98-107); Globulin 2.4 g/dL (1.3-4.6); Glomerular Filtration Rate 56.7 mL/min (90-130); Glucose 99 mg/dL (65-115); Osmolality Calculated 281 mOsm/kg (285-295); Potassium 4.3 mmol/L (3.5-5.1); Sodium 134 mmol/L (136-145); Total Bilirubin 0.9 mg/dL (0.15-1.2); Total Protein 6.6 g/dL (6.6-8.7)
--- NOTE | 2022-05-28 09:32 | P.DS_ITS ---
Discharge Providers Date of Admission: 05/26/22 14:14 Date of Discharge: May 28, 2022 Attending Provider at Admission: Leonardo Montanez M.D Attending Provider at Discharge: Leonardo Montanez M.D Consults: Dr Leroy Primary Care Provider: Jose Francisco Gandhi MD Diagnoses at Discharge Discharge Diagnosis (1) Hypotension: Status: Resolved (2) CHF (congestive heart failure), NYHA class II: Status: Acute Qualifiers: Congestive heart failure chronicity: chronic Congestive heart failure type: combined Qualified Code(s): I50.42 - Chronic combined systolic (congestive) and diastolic (congestive) heart failure (3) Obesity (BMI 30.0-34.9): Status: Acute (4) Hypothyroidism: Status: Acute (5) Atrial flutter, paroxysmal: Status: Acute (6) TRACY (obstructive sleep apnea): Status: Acute (7) Hypoxia: Status: Resolved Reason for Visit Reason for Visit: Hypotension/ Cardiogenic shock Brief History: ?56 year old male with PMH of atrial fibrillation with ablation procedure done in 2016, who sees Dr Shin in the office, presented today for BRENDON/Cardioversion as he has been staying in atrial flutter and heart rate has very high. He was successfully cardioverted back to Normal sinus rhythm with 1 shock of 200J. Post cardioversion, he developed hypotension and felt lightheaded. Anesthesia team evaluated him. Given persistent hypotension he was given IV fluids,atropine which improved heart rate from 50s to 60s. Also was given levophed bolus in the recovery area but given persistent hypotension, he was admitted to ICU for observation and initiation of levophed. Patient was also hypoxic His transesophageal echocardiogram showed moderately reduced LV systolic function.? No LA appendage thrombus was seen Hospital Course Hospital Course Patient was put on dobutamine as he had developed cardiogenic shock after converting ventricle to sinus rhythm from atrial flutter. We switched his Levophed to dobutamine. This improved his blood pressure. IV fluids were maintained he was kept in the ICU for close monitoring. Renal function worsening improved as well. At time of discharge his creatinine was 1.3. Lactate normalized. Sotalol was held. I had a detailed discussion regarding need for continuing Xarelto 20 mg daily at least for 1 month without discontinuation as previously has been noncompliant. He showed understanding.We will repeat outpatient BMP in 3 days Physical Exam Narrative: GENERAL: Patient is alert, awake and oriented x3. [] NECK: No jugular vein distension. [] HEENT: No cyanosis. No icterus. No pallor. [] HEART: Regular S1 and S2. No murmur, rub or gallop. [] LUNGS: Diminished breath sounds ABDOMEN: Soft CENTRAL NERVOUS SYSTEM:Non focal EXTREMITIES: Lower extremities with no edema Discharge Data Studies Completed and Pending Completed Studies During Hospitalization Category Date Time Status XR chest 1V portable [id number] Routine Exams 05/26/22 14:15 Completed NM pulmonary ventilation and perfusion [NM pul vent and Nuc Med 05/27/22 05:00 Completed perfus* [id number]] Routine US venous duplex lower extremity bilat [CV venous Ultrasound 05/27/22 08:17 [place] [id number]] Routine Pending at discharge Category Date Time Status US BRENDON [CV. echo transesophageal [id number]] Routine Ultrasound 05/26/22 11:21 Taken Radiology Impressions Chest X-Ray 05/26/22 14:15 IMPRESSION: No acute findings. Pulmonary Perfusion Imaging 05/27/22 05:00 IMPRESSION: Normal VQ scan. Laboratory Results WBC 13.6 10^3/uL (4.0-10.0) H 05/28/22 08:48 RBC 4.88 10^6/uL (4.1-5.3) 05/28/22 08:48 Hgb 14.1 g/dL (11.7-16.6) 05/28/22 08:48 Hct 43.8 % (42.0-52.0) 05/28/22 08:48 MCV 89.8 fl (80-94) 05/28/22 08:48 MCH 28.9 pg (28.0-34.0) 05/28/22 08:48 MCHC 32.2 g/dL (30.0-36.0) 05/28/22 08:48 RDW 13.5 % (12.1-15.1) 05/28/22 08:48 Plt Count 178 10^3/cmm (130-400) 05/28/22 08:48 MPV 9.6 fL (7.4-10.4) 05/28/22 08:48 Neut % (Auto) 72.8 % 05/28/22 08:48 Lymph % (Auto) 16.1 % 05/28/22 08:48 [place] % (Auto) 9.6 % 05/28/22 08:48 Eos % (Auto) 0.7 % 05/28/22 08:48 Baso % (Auto) 0.5 % 05/28/22 08:48 Neut # (Auto) 9.89 10^3/uL (1.8-7.7) H 05/28/22 08:48 Lymph # (Auto) 2.2 10^3/uL (0.8-4.8) 05/28/22 08:48 [place] # (Auto) 1.3 10^3/uL (0.2-0.9) H 05/28/22 08:48 Eos # (Auto) 0.1 10^3/uL (0.0-0.8) 05/28/22 08:48 Baso # (Auto) 0.1 10^3/uL (0.0-0.1) 05/28/22 08:48 Nucleated RBC % (auto) 0 % 05/28/22 08:48 Nucleated RBCs # 0.0 /100WBC 05/28/22 08:48 D-Dimer 2.50 ug/mIFEU (0-0.59) H 05/27/22 02:21 Specimen Type Arterial 05/26/22 14:51 Sample Site Radial, left 05/26/22 14:51 ABG pH 7.36 (7.35-7.45) 05/26/22 14:51 ABG pCO2 36.3 mmHg (35-45) 05/26/22 14:51 ABG pO2 57.4 mmHg (80.0-100.0) L 05/26/22 14:51 ABG HCO3 20.6 mmol/L (22-26) L 05/26/22 14:51 ABG O2 Saturation 89.5 05/26/22 14:51 ABG Base Excess -4.1 mmol/L (-2.0-2.0) L 05/26/22 14:51 Talha Test Pos 05/26/22 14:51 A-a O2 Gradient 27.8 mmHg (5-10) H 05/26/22 14:51 Hematocrit 53.4 % (42-52) H 05/26/22 14:51 Hgb O2 Saturation 87.8 % (95-100) L 05/26/22 14:51 Carboxyhemoglobin 1.3 %THgb (0.4-20.1) 05/26/22 14:51 Methemoglobin 0.5 % (0.4-1.5) 05/26/22 14:51 Total Hemoglobin 17.4 g/dL (14-18) 05/26/22 14:51 Sodium 135.0 mmol/L (131-143) 05/26/22 14:51 Potassium 5.7 mmol/L (3.5-5.0) H 05/26/22 14:51 Glucose 129.0 mg/dL (70-115) H 05/26/22 14:51 Ionized Calcium 1.2 mmol/L (1.1-1.4) 05/26/22 14:51 O2 Delivery Device Nc 05/26/22 14:51 O2 Liters/Min 6.0 % 05/26/22 14:51 FiO2 44.0 % 05/26/22 14:51 Range Conservationist ID [id number] 05/26/22 14:51 Sodium 134 mmol/L (136-145) L 05/28/22 08:48 Potassium 4.3 mmol/L (3.5-5.1) 05/28/22 08:48 Chloride 101 mmol/L (98-107) 05/28/22 08:48 Carbon Dioxide 25 mmol/L (22-29) 05/28/22 08:48 Anion Gap 12.3 (5-19) 05/28/22 08:48 BUN 21 mg/dL (6-20) H 05/28/22 08:48 Creatinine 1.3 mg/dL (0.7-1.2) H 05/28/22 08:48 GFR Calculation 56.7 mL/min (90-130) L 05/28/22 08:48 Glucose 99 mg/dL (65-115) 05/28/22 08:48 Calculated Osmolality 281 mOsm/kg (285-295) L 05/28/22 08:48 Lactic Acid 2.9 mmol/L (0.5-2.2) H 05/26/22 16:13 Lactic Acid (Sepsis) 2.7 mmol/L (0.5-2.2) H 05/26/22 18:57 Lactate 1.3 mmol/L (0.5-2.2) 05/27/22 07:43 Calcium 8.5 mg/dL (8.5-10.5) 05/28/22 08:48 Total Bilirubin 0.9 mg/dL (0.15-1.2) 05/28/22 08:48 AST 39 U/L (0-40) 05/28/22 08:48 ALT 111 U/L (0-41) H 05/28/22 08:48 Alkaline Phosphatase 52 U/L (40-130) 05/28/22 08:48 NT-Pro-B Natriuret Pep 1310 pg/mL (0-125) H 05/26/22 15:45 Total Protein 6.6 g/dL (6.6-8.7) 05/28/22 08:48 Albumin 4.2 g/dL (3.5-5.2) 05/28/22 08:48 Globulin 2.4 g/dL (1.3-4.6) 05/28/22 08:48 Vitals Last Vital Signs Temp 98.5 F 05/27/22 19:04 Pulse 65 05/28/22 06:00 Resp 20 H 05/28/22 06:00 BP 138/81 05/28/22 06:00 Pulse Ox 93 05/28/22 06:00 O2 Del Method 05/27/22 20:00 O2 Flow Rate 2 05/27/22 09:00 Discharge Plan Discharge Patient Disposition: Home Condition: Stable Prescriptions: Continued ascorbate calcium (vitamin C) 500 mg tablet 500 mg PO DAILY cholecalciferol (vitamin D3) 25 mcg (1,000 unit) capsule 25 mcg PO DAILY magnesium oxide 400 mg magnesium capsule 400 mg PO DAILY Xarelto 20 mg tablet 20 mg PO DAILY levothyroxine 75 mcg tablet See Rx Instructions .ROUTE .COMPLEX Qty: 90 3RF Dose Instruction: TAKE 1 TABLET BY MOUTH ONCE A DAY Rx Instructions: TAKE 1 TABLET BY MOUTH ONCE A DAY testosterone cypionate 200 mg/mL oil 200 mg IM .EVERY 10 DAYS Qty: 3 5RF niacin 1,000 mg tablet extended release 1,000 mg PO DAILY Qty: 90 3RF multivitamin Tablet 1 tab PO DAILY Carditone 1 tab PO DAILY zinc 1 cap PO DAILY PRN (Reason: Cold Symptoms) Discontinued sotalol 80 mg tablet 80 mg PO BID No Action sotalol 80 mg tablet 120 mg PO DIRECTED Qty: 135 3RF Rx Instructions: 80mg (1 tab) in AM and 40mg (0.5 tab) in PM Discharge Orders: Discharge Order (Routine); Ordered 05/26/22 Ordered By: Leonardo Montanez Referrals: Vania Jordan FNP [Nurse Practitioner] - 4-7 days (This appointment scheduled : Vania Jordan APN OUT OF TOWN next week : please follow up with for post hospital follow appointment date time of 09:45 am ,please have lab draw next week at [facility] ,walk in here at hospital on Thursday ) Evelyn Shin MD [Family Provider] - 2 months (please have office schedule this appointment at time of being seen by appointment for 2 month follow up for ) Discharge Diet: Cardiac Discharge Activity: Increase activity as tolerated Patient Instructions: Metoprolol (By mouth), Heart Healthy Diet, A-fib (Atrial Fibrillation) (DC), Hypotension (DC), Cardioversion (DC), CHF Stoplight Discharge Attestations Time Spent in Discharge Care*: greater than 30 min Quality Metrics Clinical Quality Measures [ No reported AMI, CVA or VTE this stay] Coding Level of Care Code Acute Chg FW DC note Diagnoses Hypotension I95.9 CHF (congestive heart failure), NYHA class II I50.42 Congestive heart failure chronicity: chronic Congestive heart failure type: combined Obesity (BMI 30.0-34.9) E66.9 Hypothyroidism E03.9 Atrial flutter, paroxysmal I48.92 TRACY (obstructive sleep apnea) G47.33 Hypoxia R09.02
--- NOTE | 2022-05-28 10:07 | PC.NURSE ---
Patient discharged. Prescriptions sent to [facility] pharmacy, pt will pickler helper when leaving facility. IV removed, intact. New medication/discontinued medication, and followup appointment education provided to the patient. Patient signature form signed.
== END 2022-05-28 10:25 | disposition home or self-care (01) ==
LOC: ICU 15:00
PROVIDERS: Internal Medicine; Admitting Provider Internal Medicine; Family Provider Internal Medicine Cardiovascular Disease; PCP Family Medicine Adult Medicine; Visit Provider Internal Medicine
PROC: (CPT 93312; principal; 2022-05-26 11:30)
PROC: 5A2204Z Restoration of Cardiac Rhythm, Single (ICD-10-PCS; 2022-05-26 11:30)
DX: I95.9 Hypotension, unspecified (principal); I50.42 Chronic combined systolic (congestive) and diastolic (congestive) heart failure; E66.9 Obesity, unspecified; Z68.34 Body mass index [BMI] 34.0-34.9, adult; E03.9 Hypothyroidism, unspecified; I48.92 Unspecified atrial flutter; G47.33 Obstructive sleep apnea (adult) (pediatric); R09.02 Hypoxemia; I25.10 Atherosclerotic heart disease of native coronary artery without angina pectoris
CPT/HCPCS: 36415; 36600; 71045; 78014; 80048; 80051; 80053; 82330; 82805; 83605; 83880; 85025; 85378; 92960; 93005; 93312; 93320; 93325; 93970; 96374; A9540; A9567; G0378; J0461; J1250; J2405; J2704; J2765; J7030; J7060; J7120

== ENCOUNTER 2022-06-02 16:37 | Outpatient (CLI) | payer OTHER, SELFPAY ==
[2022-06-02 17:33] LABS: Anion Gap 14.2 (5-19); Blood Urea Nitrogen 19 mg/dL (6-20); Calcium 9.4 mg/dL (8.5-10.5); Carbon Dioxide 26 mmol/L (22-29); Chloride 99 mmol/L (98-107); Glomerular Filtration Rate 62.2 mL/min (90-130); Glucose 116 mg/dL (65-115); Osmolality Calculated 283 mOsm/kg (285-295); Potassium 4.2 mmol/L (3.5-5.1); Sodium 135 mmol/L (136-145)
== END 2022-06-02 16:38 | disposition home or self-care (01) ==
LOC: LAB 16:40
PROVIDERS: PCP Family Medicine Adult Medicine; Visit Provider Internal Medicine
DX: N17.9 Acute kidney failure, unspecified (principal)
CPT/HCPCS: 36415; 80048

== ENCOUNTER 2022-12-03 15:50 | Outpatient (CLI) | payer OTHER, SELFPAY ==
[2022-12-03 17:11] LABS: Alanine Aminotransferase 19 U/L (0-41); Albumin Level 4.3 g/dL (3.5-5.2); Alkaline Phosphatase 57 U/L (40-130); Aspartate Amino Transferase 22 U/L (0-40); Blood Urea Nitrogen 11 mg/dL (6-20); Calcium 8.9 mg/dL (8.5-10.5); Carbon Dioxide 28 mmol/L (22-29); Chloride 101 mmol/L (98-107); Globulin 2.5 g/dL (1.3-4.6); Glomerular Filtration Rate 68.5 mL/min (90-130); Glucose 102 mg/dL (65-115); Magnesium 2.1 mg/dL (1.7-2.3); NT Pro B Type Natriuretic Pept 2500 pg/mL (0-125); Osmolality Calculated 286 mOsm/kg (285-295); Sodium 138 mmol/L (136-145); Thyroid Stimulating Hormone 4.15 uIU/mL (0.27-4.20); Total Bilirubin 0.5 mg/dL (0.15-1.2); Total Protein 6.8 g/dL (6.6-8.7)
[2022-12-03 20:53] LABS: Anion Gap 13.5 (5-19); Potassium 4.5 mmol/L (3.5-5.1)
== END 2022-12-03 15:51 | disposition home or self-care (01) ==
PROVIDERS: PCP Family Medicine Adult Medicine; Visit Provider Internal Medicine Cardiovascular Disease
DX: I48.92 Unspecified atrial flutter (principal); I50.42 Chronic combined systolic (congestive) and diastolic (congestive) heart failure
CPT/HCPCS: 36415; 80053; 83735; 83880; 84443

== ENCOUNTER 2023-04-17 09:49 | Outpatient (CLI) | payer OTHER, SELFPAY ==
--- NOTE | 2023-04-17 09:53 | USCV_ITS ---
Trevor Betancourt Age: 57 Gender: M : 1965 Exam Date: 04/17/2023 10:19 Ordering Phys: Blanca Caballero Technologist: PAUL Exam Location: [facility] [place]_ Indication: PAF BP: 124 / 82 HR: 67 Rhythm: Sinus Technical Quality: Adequate MEASUREMENTS (Male / Female) Normal Values 2D ECHO LVOT Diameter 2.0 cm LV Ejection Fraction MOD 2C 67.1 % LV Ejection Fraction 2C AL 65.2 % LA Diameter 3.3 cm LA Width 2.9 cm LA Height 4.4 cm RA Width 4.8 cm RA Height 5.8 cm Aorta at Sinotubular Diameter 2.5 cm IVC Diameter 1.3 cm M-MODE Aortic Annulus Diameter 2.6 cm LA Ao Ratio MM 1.4 MV E Point Septal Separation 0.4 cm DOPPLER AV Peak Velocity 185.0 cm/s LVOT Peak Velocity 122.0 cm/s AV Area Cont Eq vti 2.0 cm squared AV Area Cont Eq pk 2.1 cm squared MV Peak Velocity 101.0 cm/s MV Area PHT 3.1 cm squared Mitral E to A Ratio 1.3 MV E' Velocity 47.5 cm/s Mitral E to MV E' Ratio 7.3 Mitral E to LV E' Lateral Ratio 6.8 Mitral E to LV E' Septal Ratio 8.0 TR Peak Velocity 292.7 cm/s TR Peak Gradient 34.3 mmHg TR Mean Velocity 234.5 cm/s TR Mean Gradient 22.9 mmHg TR Velocity Time Integral 105.5 cm TV Peak E Velocity 49.0 cm/s Right Atrial Pressure 3.0 mmHg Pulmonary Artery Systolic Pressu 37.3 mmHg PV Peak Velocity 139.0 cm/s RV Acceleration Time 0.2 s RV Ejection Time 0.3 s RV AcT/ET 0.6 FINDINGS Left Ventricle Left ventricle is normal in size. LV systolic function is normal with EF of 60 to 65%. No regional wall motion abnormalities are seen. Right Ventricle Normal in size and function Right Atrium Dilated Left Atrium Normal in size Mitral Valve Structurally normal mitral valve. Trace mitral regurgitation. Aortic Valve Structurally normal aortic valve. No significant stenosis or regurgitation. Tricuspid Valve Mild tricuspid regurgitation. RVSP is 35 to 40 mmHg. This is consistent with mild pulmonary hypertension. Pulmonic Valve Not well visualized Pericardium Normal Aorta Normal in size IVC Appears to be normal CONCLUSIONS LV systolic function is normal with EF of 60 to 65%. Right atrial dilation. Trace mitral regurgitation Mild tricuspid regurgitation. Mild pulmonary hypertension Compared to prior echocardiogram from 2021, no significant chagnes are seen Leonardo Montanez MD (Electronically Signed) Final Date: 18 April 2023 14:09 S
== END 2023-04-17 09:50 | disposition home or self-care (01) ==
LOC: RAD 09:50
PROVIDERS: PCP Family Medicine Adult Medicine; Visit Provider Nurse Practitioner Adult Health
DX: I48.0 Paroxysmal atrial fibrillation (principal); I50.20 Unspecified systolic (congestive) heart failure; I08.1 Rheumatic disorders of both mitral and tricuspid valves; I27.20 Pulmonary hypertension, unspecified
CPT/HCPCS: 93306

== ENCOUNTER → 2024-05-13 11:46 | Outpatient (BNVA) | payer OTHER, SELFPAY | PROVIDERS: PCP Family Medicine Adult Medicine; Visit Provider Family Medicine | DX: E78.5 Hyperlipidemia, unspecified (principal); E03.9 Hypothyroidism, unspecified; G60.3 Idiopathic progressive neuropathy; G47.33 Obstructive sleep apnea (adult) (pediatric); R79.89 Other specified abnormal findings of blood chemistry | CPT/HCPCS: 80053; 80061; 82040; 82607; 83036; 84270; 84403; 84443; 85025 ==

== ENCOUNTER → 2025-03-30 16:27 | Outpatient (BNVA) | payer OTHER, SELFPAY | PROVIDERS: PCP Family Medicine Adult Medicine; Visit Provider Family Medicine | DX: Z00.00 Encounter for general adult medical examination without abnormal findings (principal); E78.5 Hyperlipidemia, unspecified; E03.9 Hypothyroidism, unspecified; G60.3 Idiopathic progressive neuropathy; R79.89 Other specified abnormal findings of blood chemistry | CPT/HCPCS: 80053; 80061; 82040; 82306; 82607; 84270; 84403; 84443; 85025 ==